=== PATIENT | female | born 1960 | race Two or more races ===

== ENCOUNTER 2019-12-24 09:30 | Outpatient (AMBR) | payer MEDICAID, SELFPAY ==
--- NOTE | 2019-12-12 09:01 | PT.OIERPT ---
PT OP Initial Eval Patient Information Visit Reasons: left knee pain Medical Diagnosis: Z47.1 Z96.652 Treatment Dx #1: L knee pain Start of Care: 12/12/19 Date of Onset: 10/30/19 Initial Assessment Subjective Pt is 59 yr old indonesian speaking female s/p L knee medial unicompartment replacement about 6 weeks ago. She presents ambulating with cane about 2 city blocks. Pain level in the L knee is 7/10 and she had HH therapy for two weeks after sx. PMH: HTN, anxiety Pt goal: to walk her normal distances without pain Objective L knee AROM: Extension: -10 deg Flexion 110 deg Strength MMT Quads: 4-/5 Hamstrings: 4-/5 SLR: 40 deg with slight extensor lag Incision: clean, no redness, drainage Squat to 25% of normal with less L LE WB. Assessment Pt presentation consistent with post op L medial unicompartment knee replacement with decreased knee flexion ROM, strength and functional mobility. Pt ambulates with decreased WB and stance time on L LE with flexed knee. Pt has decreased ability to ascend/descend stairs and has quad weakness. Pt can SLR with extensor lag. Pt has good rehab potential and requires skilled therapy in order to increase R knee ROM, strength and gait. Short Term and Non Destructive Testing Technician Goals 1. Ind with HEP 2. Improved knee flexion ROM to 120 deg 3. Improved quad and hamstring strength to 4+/5 4. Pt will ambulate with symmetrical gait pattern community distances without cane Treatment Plan 1. Manual therapy 2. Therex 3. Modalities as indicated, moist heat, ice, estim Frequency and Duration 2x a week for 8 weeks Certification Dates: 12/12/19 to 03/12/20 Office Procedures PT Procedures PT Date of Service: 12/12/19 OP PT Eval Mod Complex 30 minutes: Yes
--- NOTE | 2019-12-18 09:53 | PT.ODAYNRPT ---
PT Outpatient Daily Note Date of Service: December 18, 2019 OP Daily Note Visit Reasons: left knee pain Outpatient Physical Therapy Treatment Date: 12/18/19 Subjective: Yesterday the knee was very painful and she has difficulty straightening it. Objective: See F/S for therex MT: PPM into knee flexion, STM medial knee and incision scar x10' Assessment: Improved knee flexion to 120 deg today after manual therapy. Lacking knee extension by about 5 deg Plan: Improve knee extension Length of Time (minutes) of Treatment: 30 Minutes Office Procedures PT Procedures PT Date of Service: 12/12/19 OP PT Eval Mod Complex 30 minutes: Yes PT Procedures PT Date of Service: 12/18/19 Therapeutic Exercise 15 minutes: Yes Manual Anesthesiology Technologist 15 minutes: Yes
--- NOTE | 2019-12-20 18:55 | PT.ODAYNRPT ---
PT Outpatient Daily Note Date of Service: December 20, 2019 OP Daily Note Visit Reasons: left knee pain Outpatient Physical Therapy Treatment Date: 12/20/19 Subjective: Doing better with straightening the knee but it still hurts Objective: See F/S for therex MT: PPM into knee flexion, STM medial knee and incision scar x10' Assessment: Improved knee flexion to 120 deg today after manual therapy. Improved knee extension ROM to full today in supine Plan: Improve knee extension Length of Time (minutes) of Treatment: 30 Minutes Office Procedures PT Procedures PT Date of Service: 12/12/19 OP PT Eval Mod Complex 30 minutes: Yes PT Procedures PT Date of Service: 12/20/19 Therapeutic Exercise 15 minutes: Yes Manual Injury Prevention Coordinator 15 minutes: Yes PT Procedures PT Date of Service: 12/18/19 Therapeutic Exercise 15 minutes: Yes Manual Injury Prevention Coordinator 15 minutes: Yes
--- NOTE | 2019-12-24 10:58 | PT.ODAYNRPT ---
PT Outpatient Daily Note Date of Service: December 24, 2019 OP Daily Note Visit Reasons: left knee pain Outpatient Physical Therapy Treatment Date: 12/24/19 Subjective: pt states she is still having pain of the H.S and difficulty with knee extension. Objective: see flow sheet. Assessment: pt ambulated with antalgic gait pattern and slight knee flexion as she has difficulty with knee extension. added stepper stretch to decrease the tightness of the HS muscles. noted pt still lacks the knee extension during her stretch. STM using thera bar to her HS in prone position in which she tolerated well but noted muscle tension of the HS. Plan: continue POC per PT. Length of Time (minutes) of Treatment: 30 Minutes Office Procedures PT Procedures PT Date of Service: 12/12/19 OP PT Eval Mod Complex 30 minutes: Yes PT Procedures PT Date of Service: 12/20/19 Therapeutic Exercise 15 minutes: Yes Manual Superintendent Of Schools 15 minutes: Yes PT Procedures PT Date of Service: 12/18/19 Therapeutic Exercise 15 minutes: Yes Manual Superintendent Of Schools 15 minutes: Yes PT Procedures PT Date of Service: 12/24/19 Therapeutic Exercise 30 minutes: Yes
== END 2019-12-25 23:59 | disposition home or self-care (01) ==
PROVIDERS: PCP Physician Assistant; Referring Provider Physician Assistant; Visit Provider Orthopaedic Surgery
DX: M25.562 Pain in left knee (principal); I10 Essential (primary) hypertension
CPT/HCPCS: 97110; 97140; 97162

== ENCOUNTER → 2024-07-31 | Outpatient (CLI) | payer OTHER, MEDICAID, SELFPAY ==
[2024-07-31 12:45] LABS: Basophils % (Auto) 0 % (0-2.5); Eosinophils # (Auto) 0.1 Thou/mm3 (0.0-0.5); Eosinophils % (Auto) 1 % (0-10); Hematocrit 45.3 % (36.0-46.0); Hemoglobin 15.5 g/dL (12.0-16.0); Immature Granulocytes % (Auto) 0 % (0-0); Immature Granulocytes Auto 0.01 Thou/mm3 (0.00-0.00); Lymphocytes % (Auto) 18 % (10-50); Mean Corpuscular HGB Conc 34.2 g/dl (31.0-37.0); Mean Corpuscular Hemoglobin 29.8 pg (25.0-35.0); Mean Corpuscular Volume 87 fL (80-100); Monocytes # (Auto) 0.3 Thou/mm3 (0.0-0.8); Monocytes % (Auto) 5 % (0-12); Neutrophils # (Auto) 4.3 Thou/mm3 (1.8-7.7); Neutrophils % (Auto) 76 % (37-80); Nucleated Red Blood Cell % 0 /100 WBC (0); Platelet Count 178 Thou/mm3 (140-440); RDW Standard Deviation 45.6 fL (36.4-46.3); Red Blood Count 5.21 Miln/mm3 (4.00-5.20); White Blood Count 5.7 Thou/mm3 (3.6-11.0)
[2024-07-31 12:58] LABS: Glucose Estimated Average 108 mg/dL (80-131); Hemoglobin A1C 5.4 % Hgb (4.8-6.0)
[2024-07-31 13:05] LABS: Alanine Aminotransferase 38 U/L (10-49); Albumin, Serum 4.9 gm/dL (3.4-4.8); Albumin/Globulin Ratio 1.5 (1.2-2.2); Alkaline Phosphatase 90 U/L (46-116); Anion Gap 6 (7-16); Aspartate Amino Transferase 40 U/L (0-34); BUN/Creatinine Ratio 21 Ratio (12-20); Bilirubin,Total 0.8 mg/dL (0.3-1.2); Blood Urea Nitrogen 15 mg/dL (9-23); Carbon Dioxide 26.8 mMol/L (20.0-31.0); Chloride 104 mMol/L (98-107); Creatinine (Component) 0.7 mg/dL (0.6-1.3); Globulin 3.3 gm/dL (2.3-3.5); Glucose 182 mg/dL (74-106); Osmolality,Calculated 279 (275-295); Potassium 4.1 mMol/L (3.4-5.1); Sodium 137 mMol/L (136-145); Total Protein 8.2 gm/dL (5.7-8.2); eGFR > 60 See Note
[2024-07-31 13:07] LABS: T4 (Thyroxine) 6.8 mcg/dL (4.5-10.9)
[2024-07-31 13:43] LABS: Creatinine MALB Rnd Ur 34 mg/dL (30-125); Microalbumin Creat Ratio 18 mg/gCrea (<30); Microalbumin, Random Urine 6 mg/L (0-300)
== END | disposition home or self-care (01) ==
PROVIDERS: PCP Family Medicine; Referring Provider Family Medicine; Visit Provider Family Medicine
DX: E11.65 Type 2 diabetes mellitus with hyperglycemia (principal); I10 Essential (primary) hypertension
CPT/HCPCS: 36415; 80053; 82043; 82570; 83036; 84436; 84443; 85025

== ENCOUNTER 2024-08-06 10:02 | Emergency (ER) | payer OTHER, SELFPAY ==
[2024-08-06 10:03] VITALS: BMI 29.2
[2024-08-06 10:11] VITALS: BP 148/78; PULSE 88; RESP 19; TEMP 36.8; O2SAT 98
--- NOTE | 2024-08-06 10:21 | EDNOTE_ITS ---
ED Headache RME/HPI General Chief Complaint: Headache Stated Complaint: headache, ear pain, dizzy, stuffy nose Time Seen by Provider: 08/06/24 10:08 Arrival date/time: 08/06/24 10:02 63-year-old female presents emergency department complaints of runny nose, congestion, sinus pressure and pain patient reports no dizziness or weakness Limitations: no limitations Related Data Home Medications ?Medication ?Instructions ?Recorded ?Confirmed montelukast 10 mg tablet 10 mg PO DAILY PRN Allergy Symptoms 09/16/23 04/05/24 pregabalin 150 mg capsule 150 mg PO DAILY 09/16/23 04/05/24 amitriptyline 25 mg tablet 25 mg PO QDAY 04/05/24 04/05/24 buspirone 15 mg tablet 15 mg PO BID 04/05/24 04/05/24 celecoxib 100 mg capsule 100 mg PO DAILY 04/05/24 04/05/24 cyclobenzaprine 10 mg tablet 10 mg PO HS PRN Muscle Spasm 04/05/24 04/05/24 empagliflozin 10 mg tablet 10 mg PO QAM 04/05/24 04/05/24 (Jardiance) losartan 100 mg tablet 100 mg PO QDAY 04/05/24 04/06/24 omeprazole 40 mg capsule,delayed 40 mg PO QDAY 04/05/24 04/05/24 release pioglitazone 15 mg tablet 15 mg PO QAM 04/05/24 04/05/24 tramadol 50 mg tablet 50 mg PO TID PRN Pain 04/05/24 04/05/24 Previous Rx's ?Medication ?Instructions ?Recorded amoxicillin 875 mg-potassium 1 tab PO BID 7 days #14 tabs 08/06/24 clavulanate 125 mg tablet ibuprofen 800 mg tablet 800 mg PO TID PRN pain #30 tabs 08/06/24 Allergies Allergy/AdvReac Type Severity Reaction Status Date / Time No Known Allergies Allergy Verified 08/06/24 10:06 Review of Systems Review of Systems Systems Reviewed: All systems reviewed, normal except as documented Constitutional Constitutional: Reports system reviewed and no additional complaints, except as documented, Denies fever(s) and Denies headache(s) Eyes Eyes: Reports system reviewed and no additional complaints, except as documented and Denies blurry vision ENT Ears, Nose, Mouth, and Throat: Reports system reviewed and no additional complaints, except as documented, Denies headache(s), Reports nasal congestion, Reports nasal discharge, Reports sinus pain and Reports sinus pressure Cardiovascular Cardiovascular: Reports system reviewed and no additional complaints, except as documented, Denies chest pain and Denies dyspnea Respiratory Respiratory: Reports system reviewed and no additional complaints, except as documented, Denies chest congestion, Denies cough and Denies dyspnea Gastrointestinal Gastrointestinal: Reports system reviewed and no additional complaints, except as documented and Denies abdominal pain Integumentary/Breasts Skin/Breast: Reports system reviewed and no additional complaints, except as documented and Denies rash Neurologic Neurologic: Reports system reviewed and no additional complaints, except as documented, Reports as per HPI and Denies headache(s) Past Medical History Past Medical History NEUROLOGIC: Negative Neurological Disorders CARDIAC: Negative Cardiac Disorders ED Exam General Limitations: Present no limitations General appearance: Present alert and in no apparent distress Head Head exam: Present atraumatic, normocephalic and normal inspection Eye Eye exam: Present normal appearance, PERRL and EOMI; Absent conjunctival injection ENT ENT exam: Present normal exam, normal oropharynx and mucous membranes moist Neck Neck exam: Present normal inspection, full ROM and trachea midline Chest Chest inspection: Present normal inspection and symmetric chest wall rise Respiratory Respiratory exam: Present normal lung sounds bilaterally; Absent respiratory distress Cardiovascular Cardiovascular exam: Present regular rate, normal rhythm and normal heart sounds Abdominal Exam Abdominal exam: Present soft and normal bowel sounds; Absent distention or tenderness Extremities Exam Extremities exam: Present normal inspection and full ROM Back Exam Back exam: Present normal inspection and full ROM Neurological Exam Neurological exam: Present alert, oriented X3, CN II-XII intact, normal gait and reflexes normal; Absent motor sensory deficit Psychiatric Psychiatric exam: Present normal affect and normal mood Skin Skin exam: Present warm, dry, intact and normal color; Absent rash Course Quality Measures none Vital Signs Vital signs: Vital Signs Temperature 98.2 F 08/06/24 10:11 Pulse Rate 88 08/06/24 10:11 Respiratory Rate 19 08/06/24 10:11 Blood Pressure 148/78 H 08/06/24 10:11 Pulse Oximetry (%) 98 08/06/24 10:11 Oxygen Delivery Method Room Air 08/06/24 10:11 O2 saturation 98% on room air within normal limits Headache MDM Narrative MDM Narrative:: 63-year-old female presents emergency department complaints of runny nose, congestion, sinus pressure and pain patient reports no dizziness or weakness On exam patient well-appearing patient does not appear ill or toxic patient does not appear in any acute distress symptoms highly consistent with sinusitis Patient be given a course of antibiotics patient instructed to return if symptoms persist or worsen Patient discharged home in no distress to follow-up with primary care doctor in the next 24 to 48 hours and for any worsening symptoms to return to the ER immediately Patient data External records reviewed:: [facility] previous records Clinical information provided by:: patient Social determinants that could affect healthcare access:: none Patient has the following chronic illnesses:: See history How is presenting disease/condition affected by chronic disease/condition?: uneffected by Evaluation data The following diagnostics were reviewed and interpreted by me:: other (specify) (N/A) Lab and/or radiology exams considered but not ordered:: Consider not ordered Interpretation Summary: N/A Medications / Prescriptions Medications or Prescriptions considered but not ordered:: Given Medication administrations:: Given Consultations Consultation(s) initiated? (list below): No Diagnosis Differential diagnosis headache: migraine, tension headache, subarachnoid hemorrhage, headache and sinusitis Most likely diagnosis given after review of the tests above:: Sinusitis Admission Indicated Admission indicated?: not indicated Admission Request Was there a request for admission?: No Disposition Plan Disposition Plan: Discharge Discharge Attestation Discharge Attestation: The patient and all family members were given an opportunity to ask questions and understood the discharge instructions. Discharge instructions specifically effects, indications for sooner follow up or return to the emergency department, and the expected course of current diagnosis. Patient condition: Stable Discharge Plan Plan Patient Disposition: HOME (Self Care) Disposition Comment: stable Prescriptions/Referrals Prescriptions/Med Rec: New ibuprofen 800 mg tablet 800 mg PO TID PRN (Reason: pain) Qty: 30 0RF amoxicillin-pot clavulanate 875-125 mg tablet 1 tab PO BID 7 Days Qty: 14 0RF No Action montelukast 10 mg tablet 10 mg PO DAILY PRN (Reason: Allergy Symptoms) Patient Comments: RYAN RINCON TODOS LOS D pregabalin 150 mg capsule 150 mg PO DAILY Patient Comments: RYAN Bennett PSULA DOS VECES AL D A cyclobenzaprine 10 mg tablet 10 mg PO HS PRN (Reason: Muscle Spasm) pioglitazone 15 mg tablet 15 mg PO QAM Patient Comments: RYAN RIVASA POR VIA ORAL CADA MANANA omeprazole 40 mg Capsule,Delayed Release(Dr/Ec) 40 mg PO QDAY tramadol 50 mg Tablet 50 mg PO TID PRN (Reason: Pain) amitriptyline 25 mg Tablet 25 mg PO QDAY celecoxib 100 mg Capsule 100 mg PO DAILY losartan 100 mg Tablet 100 mg PO QDAY buspirone 15 mg Tablet 15 mg PO BID Jardiance 10 mg Tablet 10 mg PO QAM Problem List Clinical Impression: Sinusitis Patient/Caregiver Discharge Instructions Education Materials: ED Sinusitis (No Antibiotics) Additional Instructions: Please follow up with your primary care doctor in the next 24-48hrs for any worsening symptoms return here immediately Print Language: Arabic Stand Alone Forms: Mary Award Info., Patient Portal Info Letter PA/CAR SALESPERSON Supervising Physician PA/ZA Supervising Physician: Dr. Goyal
== END 2024-08-06 11:47 | disposition home or self-care (01) ==
LOC: SERX 10:32
PROVIDERS: Emergency Provider Emergency Medicine; PCP Family Medicine
DX: J32.9 Chronic sinusitis, unspecified (principal)
CPT/HCPCS: 99281

== ENCOUNTER → 2024-08-16 | Outpatient (CLI) | payer OTHER, MEDICAID, SELFPAY ==
--- NOTE | 2024-08-16 12:30 | XR_ITS ---
Examination: Breast ultrasound, unilateral, right complete Date and time of exam: August 16, 2024 1309 hours INDICATIONS: Patient states palpable lump right breast note is beginning one month ago Technique: Real-time salgado scale ultrasonographic imaging performed right breast including all 4 quadrants as well as nipple retroareolar and axillary region. Findings: 8:00 oval mass indistinct margins 2.3 x 2.8 x 1.5 cm 9:00 oval mass circumscribed 7 x 3 x 7 mm IMPRESSION: BI-RADS Category 4: Suspicious for malignancy Suspicious mass 8:00 position right breast 2.3 x 2.8 x 1.5 cm Ultrasound guided biopsy of this mass is needed to exclude breast carcinoma
== END | disposition home or self-care (01) ==
PROVIDERS: PCP Family Medicine; Referring Provider Family Medicine; Visit Provider Family Medicine
DX: N63.13 Unspecified lump in the right breast, lower outer quadrant (principal)
CPT/HCPCS: 76641

== ENCOUNTER 2024-09-14 12:50 | Day surgery (SDC) | payer OTHER, MEDICAID, SELFPAY ==
[2024-09-13 13:07] VITALS: BMI 29.5
[2024-09-14] VITALS (7 sets, daily range): BP systolic 128–172; BP diastolic 71–94; PULSE 81–99; RESP 15–19; TEMP 36.1–37.3; O2SAT 93–95; BMI 29.0
[2024-09-14] MEDS: BENZOCAINE 20% (Hurricaine) SPRAY 1 DOSE TOP (14:47)
[2024-09-14] MEDS: DiphenhydrAMINE INJ 50 MG/ML VIAL 25 MG IV (14:48)
[2024-09-14] MEDS: MIDAZOLAM INJ 1 MG/ML VIAL 2 ML (ASD USE ONLY) 2 MG IV (14:51)
[2024-09-14] MEDS: fentaNYL CIT INJ 50 mCg/ML AMP 2ML (ASD USE ONLY) IV (14:51)
--- NOTE | 2024-09-14 15:57 | SUR.PHASEII ---
1543 Pt assessment unchanged. Via logging equipment operator-pt denies pain or N/V. Amb with steady gait. Able to dress self. Pt and given dc instructions, via logging equipment operator. Both state understanding. Pt meets dc criteria-to home.
== END 2024-09-14 15:43 | disposition home or self-care (01) ==
PROVIDERS: PCP Nurse Practitioner Family; Referring Provider Specialist; Visit Provider Specialist
PROC: (CPT 43239; principal; 2024-09-14 09:45)
DX: K74.60 Unspecified cirrhosis of liver (principal); K29.70 Gastritis, unspecified, without bleeding; I85.10 Secondary esophageal varices without bleeding; K29.50 Unspecified chronic gastritis without bleeding
CPT/HCPCS: 43239; A4649; J1200; J2250; J3010; A9270

== ENCOUNTER → 2024-09-20 | Outpatient (CLI) | payer OTHER, MEDICAID, SELFPAY ==
--- NOTE | 2024-09-20 12:32 | EKG_ITS ---
[facility] Test Date: 2024-09-20 Pat Name: RICARDA LEES Department: Room: - Gender: Female Director Of Sustainable Design: SHIRLEY : 1960 Requested By: Colton Larson Order Number: [id number] Reading MD: Colton Larson Measurements Intervals Shepherd Rate: 67 P: 20 OK: 136 QRS: 28 QRSD: 78 T: 23 QT: 399 QTc: 424 Interpretive Statements SINUS RHYTHM Compared to ECG 06/28/2024 22:05:08 Incomplete right bundle-branch block no longer present /store/S0/[id number]/ecg/[id number].pdf
== END | disposition home or self-care (01) ==
LOC: SCAT 11:55 → SEKG 12:04
PROVIDERS: PCP Nurse Practitioner Family; Referring Provider Surgery; Visit Provider Surgery
DX: C50.411 Malignant neoplasm of upper-outer quadrant of right female breast (principal)
CPT/HCPCS: 93005

== ENCOUNTER → 2024-09-20 | Outpatient (CLI) | payer OTHER, MEDICAID, SELFPAY ==
[2024-09-20 12:09] LABS: Basophils % (Auto) 0 % (0-2.5); Eosinophils # (Auto) 0.1 Thou/mm3 (0.0-0.5); Eosinophils % (Auto) 3 % (0-10); Hematocrit 40.9 % (36.0-46.0); Immature Granulocytes % (Auto) 0 % (0-0); Immature Granulocytes Auto 0.01 Thou/mm3 (0.00-0.00); Lymphocytes # (Auto) 1.3 Thou/mm3 (1.0-4.8); Lymphocytes % (Auto) 40 % (10-50); Mean Corpuscular HGB Conc 34.2 g/dl (31.0-37.0); Mean Corpuscular Hemoglobin 30.5 pg (25.0-35.0); Mean Corpuscular Volume 89 fL (80-100); Monocytes # (Auto) 0.2 Thou/mm3 (0.0-0.8); Monocytes % (Auto) 7 % (0-12); Neutrophils # (Auto) 1.7 Thou/mm3 (1.8-7.7); Neutrophils % (Auto) 50 % (37-80); Nucleated Red Blood Cell % 0 /100 WBC (0); Platelet Count 161 Thou/mm3 (140-440); RDW Standard Deviation 50.7 fL (36.4-46.3); Red Blood Count 4.59 Miln/mm3 (4.00-5.20); White Blood Count 3.3 Thou/mm3 (3.6-11.0)
[2024-09-20 12:23] LABS: Alanine Aminotransferase 47 U/L (10-49); Albumin, Serum 4.8 gm/dL (3.4-4.8); Albumin/Globulin Ratio 1.7 (1.2-2.2); Alkaline Phosphatase 67 U/L (46-116); Anion Gap 8 (7-16); Aspartate Amino Transferase 24 U/L (0-34); BUN/Creatinine Ratio 23 Ratio (12-20); Bilirubin,Total 0.8 mg/dL (0.3-1.2); Blood Urea Nitrogen 14 mg/dL (9-23); C-Reactive Protein < 0.4 mg/dL (0.0-0.9); Calcium 9.5 mg/dL (8.3-10.6); Calcium (Corrected) 9.5 mg/dL (8.5-10.1); Carbon Dioxide 26.5 mMol/L (20.0-31.0); Chloride 108 mMol/L (98-107); Creatinine (Component) 0.6 mg/dL (0.6-1.3); Globulin 2.9 gm/dL (2.3-3.5); Glucose 96 mg/dL (74-106); Osmolality,Calculated 283 (275-295); Potassium 3.8 mMol/L (3.4-5.1); Sodium 142 mMol/L (136-145); Total Protein 7.7 gm/dL (5.7-8.2); eGFR > 60 See Note
[2024-09-20 12:28] LABS: Sed Rate (ESR) 33 mm/hr (0-30)
[2024-09-28 06:37] LABS: Complement Component C3* 145 mg/dL (83-193); Complement Component C4c* 17 mg/dL (15-57); DNA (ds) Antibody* 17 IU/mL
== END | disposition home or self-care (01) ==
LOC: COPL 11:04
PROVIDERS: PCP Nurse Practitioner Family; Referring Provider Internal Medicine; Visit Provider Internal Medicine
DX: I12.9 Hypertensive chronic kidney disease with stage 1 through stage 4 chronic kidney disease, or unspecified chronic kidney disease (principal); E11.22 Type 2 diabetes mellitus with diabetic chronic kidney disease; N18.9 Chronic kidney disease, unspecified; E11.65 Type 2 diabetes mellitus with hyperglycemia; F11.90 Opioid use, unspecified, uncomplicated; F34.1 Dysthymic disorder; G25.81 Restless legs syndrome; K74.69 Other cirrhosis of liver; M17.0 Bilateral primary osteoarthritis of knee; M25.511 Pain in right shoulder; M25.521 Pain in right elbow; M47.816 Spondylosis without myelopathy or radiculopathy, lumbar region; M79.7 Fibromyalgia; R76.0 Raised antibody titer
CPT/HCPCS: 36415; 80053; 85025; 85652; 86140; 86160; 86225

== ENCOUNTER 2024-11-20 09:41 | Outpatient (RCR) | payer MEDICARE, MEDICAID, SELFPAY ==
--- NOTE | 2024-11-20 12:10 | CTCCONSULT_ITS ---
[facility] [address] [place], [place] [address] Consultation Note Date: 11/20/2024 MR#: [id number] Name: RICARDA LEES : 1960 Dx: C50.511 Malignant neoplasm of lower-outer quadrant of right female breast Attending physician. Kendra Dela Cruz MD Referring physician. Colton Larson MD Reason for consultation. Invasive lobular carcinoma status post right partial mastectomy sentinel removal referred to the cancer treatment center. History of Present Illness: Patient is a 64-year-old lady on recent imaging including ultrasound revealed a suspicious nodular change in the lower outer quadrant of the right breast. Needle core biopsy 09/06/2024 revealed invasive carcinoma lobular 1.5 cm ER/IA positive HER2/shantal negative Ki-67 20% patient then underwent right partial mastectomy and removal of right sentinel lymph node 10/15/2024 resulting in 2.5 cm invasive lobular carcinoma final margins negative with 1 sentinel lymph node revealing isolated tumor involvement. pT2pN0(1+) ER/IA positive HER2 negative Ki67 20%. Oncotype DX reportedly has been ordered results not immediately available. Patient now referred to the cancer treatment center. Past Medical History: Hypertension anxiety diabetes mellitus acid reflux history of breast reduction surgery Meds. Trazodone tramadol omeprazole pregabalin amlodipine alprazolam sertraline pioglitazone allergies. None to meds Family history.: Lung cancer prostate cancer in family no family members with breast cancer Social History: Icelandic-speaking denies drinking smoking Review of Systems: He is nervous about diagnosis and has recently had a headache. Physical Exam: General: Well-appearing lady no acute distress HEENT: Atraumatic normocephalic extraocular is intact no oral lesion no cervical or supraclavicular adenopathy. CV: Well-healed scar right lower breast axilla area no suspicious masses felt in either breasts ABD: Soft no organomegaly tenderness EXT: No cyanosis clubbing or edema Assessment:1. pT2pN0(1+) invasive lobular right breast carcinoma ER/IA positive HER2/shantal negative status post partial mastectomy sentinel node removal. negative margins obtained.; Dr. Colton Larson 10/15/2024. 2. Oncotype DX reportedly has been ordered 3. Dr. Rivero, medical oncologist, scheduled to see patient 4. Patient told of receiving radiation therapy at appropriate time; 3-week course of photon therapy using 3D technique with E boost to the tumor site for 1 additional week.. Side effects explained. 5. Thank you very much allowing me to evaluate and manage this patient. Cc Colton Dela Cruz MD Electronically signed by: Jay Bonilla MD, DABR 11/20/2024 12:07 PM
== END 2024-11-23 23:59 | disposition home or self-care (01) ==
LOC: SCTC 09:41
PROVIDERS: PCP Family Medicine; Referring Provider Surgery; Visit Provider Radiology Therapeutic Radiology
DX: C50.511 Malignant neoplasm of lower-outer quadrant of right female breast (principal); Z17.0 Estrogen receptor positive status [ER+]; Z17.21 Progesterone receptor positive status; Z17.32 Human epidermal growth factor receptor 2 negative status; Z90.11 Acquired absence of right breast and nipple
CPT/HCPCS: 99213; G0463

== ENCOUNTER 2024-12-11 23:55 | Emergency (ER) | payer OTHER, MEDICAID, SELFPAY ==
[2024-12-11 23:56] VITALS: BMI 28.3
[2024-12-12 00:12] VITALS: BP 168/83; PULSE 88; RESP 16; TEMP 36.7; O2SAT 98
--- NOTE | 2024-12-12 00:42 | PD.EDHA ---
ED Headache RME/HPI General Chief Complaint: Headache Stated Complaint: HEADACHE Time Seen by Provider: 12/12/24 00:14 Arrival date/time: 12/11/24 23:55 64F with history of DM, HTN, migraines and anxiety presents to ED with 1 day of RAMON. Patient denies fall/trauma, LOC, AMS, seizures, N/V, visison changes, slurred speech, weakness, and dizziness. Patient states this feels like her typical migraines. Patient took some ibuprofen w/ only minimal relief. Limitations: no limitations Related Data Home Medications ?Medication ?Instructions ?Recorded ?Confirmed montelukast 10 mg tablet 10 mg PO DAILY PRN Allergy Symptoms 09/16/23 09/14/24 omeprazole 40 mg capsule,delayed 40 mg PO QDAY 04/05/24 09/14/24 release pioglitazone 15 mg tablet 15 mg PO QAM 04/05/24 09/14/24 alprazolam 0.25 mg tablet 0.25 mg PO QDAY 09/14/24 09/14/24 Held on 09/14/24. Instructions: Resume on 09/15/24. amlodipine 5 mg tablet 5 mg PO QDAY 09/14/24 09/14/24 semaglutide 0.25 mg or 0.5 mg (2 0.25 mg subcut QWEEK 09/14/24 09/14/24 mg/3 mL) subcutaneous pen injector (Ozempic) Allergies Allergy/AdvReac Type Severity Reaction Status Date / Time No Known Allergies Allergy Verified 09/14/24 13:37 Review of Systems Review of Systems Systems Reviewed: All systems reviewed, normal except as documented Constitutional Constitutional: Reports system reviewed and no additional complaints, except as documented, Reports as per HPI, Denies fever(s) and Reports headache(s) ENT Ears, Nose, Mouth, and Throat: Denies disequilibrium and Reports headache(s) Cardiovascular Cardiovascular: Reports system reviewed and no additional complaints, except as documented, Denies chest pain and Denies dyspnea Respiratory Respiratory: Reports system reviewed and no additional complaints, except as documented, Denies cough and Denies dyspnea Gastrointestinal Gastrointestinal: Reports system reviewed and no additional complaints, except as documented, Denies abdominal pain, Denies nausea and Denies vomiting Neurologic Neurologic: Reports system reviewed and no additional complaints, except as documented, Denies confusion, Denies disequilibrium and Reports headache(s) Psychiatric Psychiatric: Denies confusion Past Medical History Past Medical History NEUROLOGIC: Negative Neurological Disorders or Seizures CARDIAC: Positive Cardiac Disorders and Hypertension; Negative Congestive Heart Failure RESPIRATORY: Negative Chronic Obstructive Pulmonary Disease (COPD), Asthma or Sleep Apnea GASTROINTESTINAL: Positive Gastrointestinal Disorders, Cirrhosis, Diverticulitis and Diverticulosis; Negative Hepatitis or Gastroesophageal Reflux Disease GENITOURINARY: Positive Genitourinary Disorders and Renal Disease REPRODUCTIVE: Positive Previous Pregnancies MUSCULOSKELETAL: Positive Musculoskeletal Disorders and Arthritis ENDOCRINE: Positive Endocrine Disorders and Diabetes Mellitus Type 2; Negative Diabetes Mellitus Type 1 HEMATOLOGIC: Negative Blood Disorders or Sickle Cell Disease PSYCHO/SOCIAL: Positive Depression and Anxiety OTHER HISTORY: Positive Chicken Pox and Measles; Negative Hospitalization, Autoimmune Disease, Down Syndrome, Developmental Delay, Shingles, Falls, Blood Transfusions, Blood Transfusion Reaction, Anesthesia Reactions, Chemotherapy, Radiation Therapy, Mumps or Cancer Family History FAMILY HISTORY: Positive Family Cancer; Negative Family Psychiatric Problems, Family Respiratory Disorders, Family Cardiac Disorders, Family Gastrointestinal Problems, Family Surgery or Family Anesthesia Reaction Surgical History SURGICAL: Positive Abdominal Surgery, Arthroscopy and Tubal Ligation Social History SMOKING STATUS: Never smoker ED Exam General Limitations: Present no limitations General appearance: Present alert, in no apparent distress and anxious Head Head exam: Present atraumatic Eye Eye exam: Present normal appearance, PERRL and EOMI ENT ENT exam: Present normal exam, normal oropharynx and mucous membranes moist Neck Neck exam: Present normal inspection, full ROM and trachea midline Chest Chest inspection: Present normal inspection and symmetric chest wall rise Respiratory Respiratory exam: Present normal lung sounds bilaterally Cardiovascular Cardiovascular exam: Present regular rate, normal rhythm and normal heart sounds Abdominal Exam Abdominal exam: Present soft and normal bowel sounds Extremities Exam Extremities exam: Present normal inspection and full ROM Back Exam Back exam: Present normal inspection and full ROM Neurological Exam Neurological exam: Present alert, oriented X3 and CN II-XII intact Psychiatric Psychiatric exam: Present normal affect and normal mood Skin Skin exam: Present warm, dry, intact and normal color Course Quality Measures none Orders Category Date Time Status Metoclopramide [Reglan] Med 12/12/24 00:14 Discontinued 10 mg PO X1 ONE SUMAtriptan INJ [Imitrex Inj] Med 12/12/24 00:14 Discontinued 6 mg SC X1 ONE Vital Signs Vital signs: Vital Signs Temperature 98.1 F 12/12/24 00:12 Pulse Rate 88 12/12/24 00:12 Respiratory Rate 16 12/12/24 00:12 Blood Pressure 168/83 H 12/12/24 00:12 Pulse Oximetry (%) 98 12/12/24 00:12 Oxygen Delivery Method Room Air 12/12/24 00:12 O2 at 98% on RA and WNLs Headache MDM Narrative MDM Narrative:: 64F with history of DM, HTN, migraines and anxiety presents to ED with 1 day of RAMON. Patient denies fall/trauma, LOC, AMS, seizures, N/V, visison changes, slurred speech, weakness, and dizziness. Patient states this feels like her typical migraines. Patient took some ibuprofen w/ only minimal relief. Physical exam reveals normal pupil response and EOM. ENT clear. CN II-XII grossly intact. Patient is afebrile, alert, but anxious. Migraine meds improved symptoms. Patient data External records reviewed:: [facility] previous records Clinical information provided by:: patient Social determinants that could affect healthcare access:: none Patient has the following chronic illnesses:: DM, HTN, migraines and anxiety How is presenting disease/condition affected by chronic disease/condition?: caused by Evaluation data The following diagnostics were reviewed and interpreted by me:: other (specify) (none) Lab and/or radiology exams considered but not ordered:: not ordered Interpretation Summary: n/a Medications / Prescriptions Medications or Prescriptions considered but not ordered:: ordered Medication administrations:: Medication Administration History Discontinued Medications Metoclopramide HCl (Metoclopramide 5 Mg Tablet) 10 mg PO X1 ONE Stop: 12/12/24 00:15 Last Admin: 12/12/24 00:47 Dose: 10 mg Documented By: OA Sumatriptan Succinate (Sumatriptan Inj 6 Mg/0.5 Ml Vial) 6 mg SC X1 ONE Stop: 12/12/24 00:15 Last Admin: 12/12/24 00:47 Dose: 6 mg Documented By: OA above Consultations Consultation(s) initiated? (list below): No Diagnosis Differential diagnosis headache: migraine, tension headache, subarachnoid hemorrhage, headache, meningitis, sinusitis, postconcussion syndrome and other (CVA/TIA) Most likely diagnosis given after review of the tests above:: migraine Admission Indicated Admission indicated?: not indicated Admission Request Was there a request for admission?: No Disposition Plan Disposition Plan: Discharge Discharge Attestation Discharge Attestation: The patient and all family members were given an opportunity to ask questions and understood the discharge instructions. Discharge instructions specifically effects, indications for sooner follow up or return to the emergency department, and the expected course of current diagnosis. Patient condition: Stable Discharge Plan Plan Patient Disposition: HOME (Self Care) Disposition Comment: Stable Prescriptions/Referrals Prescriptions/Med Rec: No Action montelukast 10 mg tablet 10 mg PO DAILY PRN (Reason: Allergy Symptoms) Patient Comments: TOME MOR TABLETA TODOS LOS D pioglitazone 15 mg tablet 15 mg PO QAM Patient Comments: TOME MOR TABLETA POR VIA ORAL CADA MANANA omeprazole 40 mg Capsule,Delayed Release(Dr/Ec) 40 mg PO QDAY amlodipine 5 mg tablet 5 mg PO QDAY alprazolam 0.25 mg tablet 0.25 mg PO QDAY Ozempic 0.25 mg or 0.5 mg (2 mg/3 mL) pen injector 0.25 mg SUBCUT QWEEK Patient Comments: states will not be taking anymore Referrals: Pamela Domínguez TELEPHONE SWITCHBOARD OPERATOR [Primary Care Provider] - In 1 week Problem List Clinical Impression: Migraine Patient/Caregiver Discharge Instructions Education Materials: ED Headache, Migraine, Classic Additional Instructions: Please follow-up with PCP within 24-48 hours and return immediately if symptoms worsen. Print Language: Bruneian Stand Alone Forms: Patient Portal Info Letter SAUMYA/ZA Supervising Physician SAUMYA/ZA Supervising Physician: Dr. Harris
[2024-12-12] MEDS: METOCLOPRAMIDE 5 MG TABLET 10 MG PO (00:47)
[2024-12-12] MEDS: SUMAtriptan INJ 6 MG/0.5 ML VIAL SC (00:47)
== END 2024-12-12 01:34 | disposition home or self-care (01) ==
PROVIDERS: Emergency Provider Emergency Medicine; PCP Nurse Practitioner Family
DX: G43.109 Migraine with aura, not intractable, without status migrainosus (principal)
CPT/HCPCS: 96372; 99283; J3030; A9270

== ENCOUNTER → 2024-12-21 | Outpatient (CLI) | payer OTHER, MEDICAID, SELFPAY ==
--- NOTE | 2024-12-21 13:09 | XR_ITS ---
Examination: Knee, right , 3 views Technique: Knee AP, lateral, oblique 3 views Date and time of exam: December 21, 2024 1356 hours INDICATIONS: Right knee pain beginning 9 months ago FINDINGS: Total right knee arthroplasty. Stable alignment compared with 06/01/2024 No fracture No loosening of the prosthetic components IMPRESSION: Total right knee arthroplasty with satisfactory alignment
== END | disposition home or self-care (01) ==
PROVIDERS: PCP Orthopaedic Surgery; Referring Provider Orthopaedic Surgery; Visit Provider Orthopaedic Surgery
DX: M25.561 Pain in right knee (principal); Z96.651 Presence of right artificial knee joint
CPT/HCPCS: 73562

== ENCOUNTER 2024-12-24 11:15 | Outpatient (RCR) | payer MEDICARE, MEDICAID, SELFPAY ==
--- NOTE | 2024-12-05 00:05 | CTCCONSULT_ITS ---
Patient: RICARDA LEES : 1960 MR#: [id number] Page 4 of 5 CONSULTATION NOTE DATE OF CONSULTATION: 12/04/2024 NAME: RICARDA LEES ACCOUNT: [id number] : 1960 AGE: 64 REFERRING PHYSICIAN: Dipak Rivero MD PRIMARY PHYSICIAN: Dipak Rivero MD REASON FOR VISIT: Breast cancer ER/RI positive ONCOLOGY HISTORY: DIAGNOSIS: Malignant neoplasm of lower-outer quadrant of right female breast [ICD10] C50.511 DATE OF DIAGNOSIS: 09/06/2024 STAGE/TNM: Stage II T2 N0 M0 ER positive RI positive HER2 negative TREATMENT HISTORY: Care?Plan Start?Date Cycle Day Intent tamoxifen 20 mg daily HISTORY OF PRESENT ILLNESS: 64-year-old female is diagnosed with breast cancer after she noted nodular change in the left upper quadrant of her right breast since June 2024. Patient previously had a left breast biopsy about 6 years ago which was benign. Patient was found to have irregular mass in the right breast 09/06/2024 breast biopsy was obtained showed invasive lobular carcinoma grade 3 mitotic score 2 overall grade 2 largest invasive focus in this biopsy 1.5 cm ER 90% positive progesterone 3% l HER2 negative and Ki-67 20% 10/23/2024 underwent a lumpectomy showed T2 N0 M0 ER positive RI positive HER2 negative Ki-67 20% OTHER MEDICAL HISTORY/CONDITIONS: DIABETES ON ORAL MEDS HYPERTENSION SHINGLES (SEPTEMBER 2024) TUMMY TUCK 16YEARS AGO BREAST REDUCTION SURGERY TUBAL LIGATION (1988) TOTAL KNEE REPLACEMENT RIGHT (FEBRUARY 2024 ) TOTAL KNEE REPLACEMENT LEFT (2018) FAMILY HISTORY: Father:?FATHER?PROSTATE? Mother:??MOTHER?UTERINE?CANCER? [place] BROTHER COLON CANCER DX AGE 45 LIVING Children:?DENIES Cancer?History:?RIGHT?BREAST?CANCER SOCIAL HISTORY: Occupational?History:?RETIRED FROM [employer] Education?Level:?Completed something less than 8th grade Marital?Status:?Life?Partner Tobacco?Pack?per?Day:?0 Tobacco?Use:?DENIES ETOH?Use:?DENIES Drug?Note:?DENIES Social History Note:?LIVES WITH PARTNER DAUGHTER DIESEL LUBE TECH HISTORY: Menarche?-?Age:?15 Menopause:?48 Hormone?Use:?DENIES :?3 Live?Births:?3 Age?1st?:?20 Painful?intercourse:?N-No Gynecological?Note:?LAST PAP MORE THAN 10 YEARS AGO MEDICATIONS: 1. amlodipine - 10 mg As directed 2. cyclobenzaprine - 10 mg Daily 3. omeprazole - 40 mg Daily 4. Ozempic - 0.25 mg Weekly 5. pioglitazone - 15 mg Daily 6. tamoxifen - 20 mg 1 tab Daily 7. tramadol - 50 mg As directed 8. Trazodone - 50 mg Daily Medications Last Reconciled by Fatou Spears RN on 12/04/2024 ALLERGIES: No Known Allergies REVIEW OF SYSTEMS: A complete 14-point review of systems was performed and is negative except as noted in interval history. PHYSICAL EXAMINATION: VITAL SIGNS: Temperature?98.5, B/P?138/85, Height?60.5?inches, Oxygen?Saturation?99% Weight?160?lbs (Change?since?11/20/24:?1?lbs) PAIN: 0 - No pain ECOG Performance Status: 0 - Asymptomatic and fully active GENERAL APPEARANCE: Appears well, in no apparent distress, appropriately interactive. HEENT: Normocephalic, no temporal wasting, normal conjunctiva, no scleral icterus, normal hearing, lips without lesions, neck normal range of motion. CARDIOVASCULAR: Not assessed. PULMONARY: Normal respiratory effort, no respiratory distress or use of accessory muscles, speaking in full sentences, no tachypnea. EXTREMITIES: No pedal edema or cyanosis. SKIN: Normal skin appearance. NEUROLOGIC: Alert and oriented x4. PSHYCHIATRIC patient is very anxious breast examination shows well-healed breast with no masses in either breast or axilla LABORATORY DATA: I have personally reviewed and interpreted each of Ms. Lees?s relevant lab tests, abnormal findings are below: Date ASSESSMENT/PLAN: Stage II T2 N0 M0 lobular invasive carcinoma of the right breast upper outer quadrant Oncotype score 23 benefit of chemo less than 1% risk of recurrence with antiendocrine therapy at 9 years is 9% Discussed with patient Discussed antiendocrine therapy including tamoxifen and anastrozole Patient already have lots of menopausal symptoms as well as anxiety Patient is active Will prefer to start on tamoxifen to see tolerance Will see her back in 4 weeks after starting drug Patient will first complete her radiation for 3 weeks and then start tamoxifen ORDERS: Bone density, radhames testing RETURN TO CLINIC: I will see her back in the clinic in 2 months. BILLING AND COMPLIANCE: I reviewed external records from providers outside my specialty as summarized above. I spent a total of 50 minutes on this patient?s care on the day of their visit excluding time spent related to any billed procedures. This time includes time spent with the patient as well as time spent documenting in the medical record, reviewing patients records and tests, obtaining history, placing orders, communicating with other healthcare professionals, counseling the patient, family or caregiver, and/or care coordination for the diagnoses above. Electronically Signed by: Dipak Rivero MD T: 12:03 AM CC: Jay?JADYN Bonilla PCP: Jay Bonilla Referring: Colton Larson This document was completed utilizing speech recognition software. Grammatical errors, random word insertions, pronoun errors, and incomplete sentences are an occasional consequence of this system due to software limitations, ambient noise, and hardware issues. Any formal questions or concerns about the content, text or information contained within the body of this dictation should be directly addressed to the provider for clarification.
--- NOTE | 2024-12-18 06:58 | CTCSNOTE_ITS ---
[facility] [address], [place] [address] [place] Simulation Note Date: 12/18/2024 MR# [id number] Name: RICARDA LEES : 1960 (A) DIAGNOSIS: C50.511 Malignant neoplasm of lower-outer quadrant of right female breast (B) Patient was placed in supine position and used vaklok for immobilization purposes. (C) CT slices included R breast (D) 3 D Will be needed for maximum sparing of adjacent normal critical structures. (E) Patient tolerated the simulation well and left the room in good condition. Electronically signed by: Jay Bonilla MD, ANDREZR 12/18/2024 6:55 AM
== END 2024-12-24 23:59 | disposition home or self-care (01) ==
LOC: SCTC 11:15
PROVIDERS: PCP Nurse Practitioner Family; Referring Provider Internal Medicine Hematology & Oncology; Visit Provider Internal Medicine Hematology & Oncology
DX: Z51.0 Encounter for antineoplastic radiation therapy (principal); C50.511 Malignant neoplasm of lower-outer quadrant of right female breast; Z17.0 Estrogen receptor positive status [ER+]; Z17.21 Progesterone receptor positive status; Z17.32 Human epidermal growth factor receptor 2 negative status; Z79.810 Long term (current) use of selective estrogen receptor modulators (SERMs); Z79.811 Long term (current) use of aromatase inhibitors; F41.9 Anxiety disorder, unspecified; Z90.11 Acquired absence of right breast and nipple
CPT/HCPCS: 77014; 77280; 77290; 77295; 77300; 77334; 77412; 99213; 99424; 99425; G0463

== ENCOUNTER → 2024-12-31 | Outpatient (CLI) | payer MEDICARE, MEDICAID, SELFPAY ==
[2024-12-31 09:36] LABS: Misc Send Out* See Sep Rpt
== END | disposition home or self-care (01) ==
PROVIDERS: PCP Internal Medicine Hematology & Oncology; Referring Provider Internal Medicine Hematology & Oncology; Visit Provider Internal Medicine Hematology & Oncology
DX: C50.511 Malignant neoplasm of lower-outer quadrant of right female breast (principal)

== ENCOUNTER → 2025-01-11 | Outpatient (CLI) | payer MEDICARE, MEDICAID, SELFPAY ==
--- NOTE | 2025-01-11 14:00 | XR_ITS ---
Examination: Bone densitometry Date and time of exam:January 11, 2025 1422 hours INDICATIONS: Menopause age 46 calcium and vitamin D 3 years, diabetic Technique: Lumbar spine and hip total bone mineralization values of an calculated. Peak reference and age match control results have been displayed. Findings: Lumbar spine total bone mineralization is0.951 gm/cm2. This is 0.9 standard deviations below peak reference. This is 0.8 standard deviations above age-matched controls. Hip total bone mineralization is 0.897 gm/cm2 This is 0.5 standard deviations below peak reference. This is 0.6 standard deviations above age-matched controls Impression: There is normal mineralization based on lumbar spine measurements. There is normal mineralization based on hip measurements
== END | disposition home or self-care (01) ==
PROVIDERS: PCP Nurse Practitioner Family; Referring Provider Internal Medicine Hematology & Oncology; Visit Provider Internal Medicine Hematology & Oncology
DX: C50.511 Malignant neoplasm of lower-outer quadrant of right female breast (principal)
CPT/HCPCS: 77080

== ENCOUNTER 2025-01-18 10:58 | Outpatient (RCR) | payer MEDICARE, MEDICAID, SELFPAY | END 2025-01-23 23:59 | disposition home or self-care (01) | LOC: SCTC 10:58 | PROVIDERS: PCP Family Medicine; Referring Provider Family Medicine; Visit Provider Internal Medicine Hematology & Oncology | DX: Z51.0 Encounter for antineoplastic radiation therapy (principal); C50.511 Malignant neoplasm of lower-outer quadrant of right female breast; Z17.0 Estrogen receptor positive status [ER+]; Z17.21 Progesterone receptor positive status; Z17.32 Human epidermal growth factor receptor 2 negative status; L59.9 Disorder of the skin and subcutaneous tissue related to radiation, unspecified; Y84.2 Radiological procedure and radiotherapy as the cause of abnormal reaction of the patient, or of later complication, without mention of misadventure at the time of the procedure | CPT/HCPCS: 77290; 77300; 77332; 77336; 77412; 77417 ==

== ENCOUNTER 2025-02-07 14:01 | Outpatient (RCR) | payer MEDICARE, MEDICAID, SELFPAY ==
--- NOTE | 2025-01-31 11:10 | CTCTSUMM_ITS ---
[facility] [address], [place] [address] Treatment Summary Date: 01/31/2025 MR#: [id number] Name: RICARDA LEES : 1960 Dx: C50.511 Referring Physician: Colton Larson MD (A) Diagnosis: [ICD10] C50.511 Malignant neoplasm of lower-outer quadrant of right female breast IIA (B) Aim of Treatment: ??Curative (C) Concomitant Chemotherapy: No (D) Radiation Dates: 12/04/2024 through 01/18/2025 Treatment Prescription LUQ R breast Electron boost 15 MeV E- 1,000 cGy 5 200 cGy Approved R breast 2 FIELD SEG Mixed Mode 4,005 cGy 15 267 cGy Approved (E) All riojas were treated using customized MLC Blocks (F) Finding at Discharge: Seen for first follow-up on 01/31/2025. Patient was recovering from the skin effects had some minor right shoulder pain. (G) Discharge Instructions and F/U Appt was given: The patient was also advised to continue follow-up with Dr. Rivero and primary care physician: (H) Cc: Colton Dela Cruz MD Electronically signed by: Jay Bonilla MD, ANDREZR 01/31/2025 11:07 AM
--- NOTE | 2025-02-14 14:18 | CTCFLWUP_ITS ---
Patient: RICARDA LEES : 1960 Page 5 of 6 FOLLOW UP NOTE DATE OF SERVICE: 02/07/2025 NAME: RICARDA LEES ACCOUNT: [id number] : 1960 AGE: 64 INTERVAL HISTORY: Subjective: Chief Complaint Follow-up after radiation treatment, review of tamoxifen medication History of Present Illness Ricarda is a female patient with a history of breast cancer who recently completed radiation therapy and started tamoxifen treatment last month. She reports experiencing significant fatigue during her radiation treatment. The patient has been taking tamoxifen as prescribed since starting it last month, along with calcium and vitamin D supplements daily. Ricarda's parents both from cancer; her father had prostate cancer, and her mother had groin cancer. They were brought to [place] for treatment, but unfortunately, it was too late for effective intervention. This family history has understandably caused some worry for the patient. The patient is planning a trip to [place] within the next month. She has been advised about precautions to take with her tamoxifen medication during travel, including not taking it when sitting for extended periods (more than 2-3 hours) and resuming once at her destination. Ricarda currently takes all her medications in the morning. Medications and Supplements - Tamoxifen - Started last month - Takes in the morning - Calcium - Takes daily - Vitamin D - Takes daily Review of Systems General: Positive for fatigue. Objective: N/A ONCOLOGY HISTORY: DIAGNOSIS: Malignant neoplasm of lower-outer quadrant of right female breast [ICD10] C50.511 DATE OF DIAGNOSIS: 09/06/2024 STAGE/TNM: Stage II T2 N0 M0 ER positive DC positive HER2 negative TREATMENT HISTORY: Care?Plan Start?Date Cycle Day Intent HISTORY OF PRESENT ILLNESS: 64-year-old female is diagnosed with breast cancer after she noted nodular change in the left upper quadrant of her right breast since June 2024. Patient previously had a left breast biopsy about 6 years ago which was benign. Patient was found to have irregular mass in the right breast 09/06/2024 breast biopsy was obtained showed invasive lobular carcinoma grade 3 mitotic score 2 overall grade 2 largest invasive focus in this biopsy 1.5 cm ER 90% positive progesterone 3% l HER2 negative and Ki-67 20% 10/23/2024 underwent a lumpectomy showed T2 N0 M0 ER positive DC positive HER2 negative Ki-67 20% OTHER MEDICAL HISTORY/CONDITIONS: DIABETES ON ORAL MEDS HYPERTENSION SHINGLES (SEPTEMBER 2024) TUMMY TUCK 16YEARS AGO BREAST REDUCTION SURGERY TUBAL LIGATION (1988) TOTAL KNEE REPLACEMENT RIGHT (FEBRUARY 2024 ) TOTAL KNEE REPLACEMENT LEFT (2018) FAMILY HISTORY: Father:?FATHER?PROSTATE? Mother:??MOTHER?UTERINE?CANCER? 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 amlodipine - 10 mg As directed 2. cyclobenzaprine - 10 mg Daily 3. omeprazole - 40 mg Daily 4. Ozempic - 0.25 mg Weekly 5. pioglitazone - 15 mg Daily 6. tamoxifen - 20 mg 1 tab Daily 7. tramadol - 50 mg As directed 8. Trazodone - 50 mg Daily Medications Last Reconciled by Vida aSlas MA on 02/07/2025 ALLERGIES: No Known Allergies REVIEW OF SYSTEMS: A complete 14-point review of systems was performed and is negative except as noted in interval history. PHYSICAL EXAMINATION: VITAL SIGNS: Temperature?98.2, B/P?137/76, Oxygen?Saturation?97% Weight?160?lbs (Change?since?01/31/25:?-1?lbs) PAIN: 0 - No pain GENERAL APPEARANCE: Appears well, in no apparent distress, appropriately interactive. HEENT: Normocephalic, no temporal wasting, normal conjunctiva, no scleral icterus, normal hearing, lips without lesions, neck normal range of motion. CARDIOVASCULAR: Not assessed. PULMONARY: Normal respiratory effort, no respiratory distress or use of accessory muscles, speaking in full sentences, no tachypnea. EXTREMITIES: No pedal edema or cyanosis. SKIN: Normal skin appearance. NEUROLOGIC: Alert and oriented x4. 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 Assessment: Patient has completed radiation therapy for breast cancer and initiated tamoxifen therapy last month. She experienced significant fatigue during radiation treatment. Family history is notable for cancer in both parents, with father having had prostate cancer and mother having had groin canc er. Patient is currently taking tamoxifen as part of her ongoing treatment plan. Plan: - Continue tamoxifen for 3 years, then reassess for potential change in therapy - Advise to discontinue tamoxifen during illness, travel, or when sitting for more than 2-3 hours - Can resume tamoxifen upon reaching destination if traveling - Take calcium and vitamin D supplements daily - Schedule follow-up appointment in 3 months, then every 6 months thereafter - Order mammogram 4-6 months post-surgery - Patient education provided: - Informed that missing one or two days of tamoxifen is acceptable - Counseled on potential link between stress and cancer risk - Cleared for travel to [place] within a month RETURN TO CLINIC: BILLING AND COMPLIANCE: I reviewed external records from providers outside my specialty as summarized above. I spent a total of 50 minutes on this patient?s care on the day of their visit excluding time spent related to any billed procedures. This time includes time spent with the patient as well as time spent documenting in the medical record, reviewing patients records and tests, obtaining history, placing orders, communicating with other healthcare professionals, counseling the patient, family or caregiver, and/or care coordination for the diagnoses above. Electronically Signed by: Dipak Rivero MD T: 6:47 AM CC: Jay?Irene,? PCP: Pamela Domínguez Referring: Pamela Domínguez This document was completed utilizing speech recognition software. Grammatical errors, random word insertions, pronoun errors, and incomplete sentences are an occasional consequence of this system due to software limitations, ambient noise, and hardware issues. Any formal questions or concerns about the content, text or information contained within the body of this dictation should be directly addressed to the provider for clarification.
== END 2025-02-23 23:59 | disposition home or self-care (01) ==
LOC: SCTC 14:01
PROVIDERS: PCP Nurse Practitioner Family; Referring Provider Nurse Practitioner Family; Visit Provider Internal Medicine Hematology & Oncology
DX: C50.511 Malignant neoplasm of lower-outer quadrant of right female breast (principal); Z17.0 Estrogen receptor positive status [ER+]; Z17.21 Progesterone receptor positive status; Z17.32 Human epidermal growth factor receptor 2 negative status; Z90.11 Acquired absence of right breast and nipple; Z92.3 Personal history of irradiation; Z79.810 Long term (current) use of selective estrogen receptor modulators (SERMs)
CPT/HCPCS: 99213; Q3014; G0463

== ENCOUNTER → 2025-02-19 | Outpatient (CLI) | payer MEDICARE, MEDICAID, SELFPAY ==
--- NOTE | 2025-02-19 | XR_ITS ---
Examination: Shoulder,right, 3 views Technique: Shoulder AP internal rotation, AP external rotation, Y view shoulder, 3 views Exam date and time :February 19, 2025 1121 hours INDICATIONS: Right shoulder pain beginning 12 years ago. FINDINGS: Prominent osteopenia. Moderate to advanced narrowing glenohumeral joint No fracture or dislocation IMPRESSION: Moderate to advanced narrowing glenohumeral joint
[2025-02-19 11:01] LABS: Collection Type, Urine Clean Catch
[2025-02-19 11:32] LABS: Bacteria,Urine Rare; Bilirubin,Urine Negative (Negative); Blood,Urine Negative (Negative); Clarity,Urine Clear (Clear/Hazy); Color,Urine Lt-Yellow (Lt Yel-Yel); Culture Indicated,Urine Not Indicated; Glucose, Urine 4+ (Negative); Ketones,Urine Negative (Negative); Leukocyte Esterase,Urine Negative (Negative); Nitrite,Urine Negative (Negative); Protein,Urine Negative (Neg - Trace); RBC,Urine 2 /hpf (0-3); Specific Gravity,Urine 1.027 (1.001-1.035); Squamous Epithelial Cell,Urine 4 /hpf (0-5); Urobilinogen,Urine Negative mg/dL (0.0-1.0); WBC,Urine 1 /hpf (0-5)
[2025-02-19 11:49] LABS: Basophils % (Auto) 0 % (0-2.5); Eosinophils # (Auto) 0.1 Thou/mm3 (0.0-0.5); Eosinophils % (Auto) 3 % (0-10); Hematocrit 39.8 % (36.0-46.0); Hemoglobin 13.9 g/dL (12.0-16.0); Immature Granulocytes % (Auto) 0 % (0-0); Immature Granulocytes Auto 0.01 Thou/mm3 (0.00-0.00); Lymphocytes # (Auto) 0.7 Thou/mm3 (1.0-4.8); Lymphocytes % (Auto) 22 % (10-50); Mean Corpuscular HGB Conc 34.9 g/dl (31.0-37.0); Mean Corpuscular Volume 89 fL (80-100); Monocytes # (Auto) 0.3 Thou/mm3 (0.0-0.8); Monocytes % (Auto) 9 % (0-12); Neutrophils # (Auto) 1.9 Thou/mm3 (1.8-7.7); Neutrophils % (Auto) 65 % (37-80); Nucleated Red Blood Cell % 0 /100 WBC (0); Platelet Count 122 Thou/mm3 (140-440); RDW Standard Deviation 48.7 fL (36.4-46.3); Red Blood Count 4.48 Miln/mm3 (4.00-5.20)
[2025-02-19 11:52] LABS: Glucose Estimated Average 103 mg/dL (80-131); Hemoglobin A1C 5.2 % Hgb (4.8-6.0)
[2025-02-19 11:55] LABS: Creatinine MALB Rnd Ur 92 mg/dL (30-125); Microalbumin Creat Ratio 17 mg/gCrea (<30); Microalbumin, Random Urine 16 mg/L (0-300)
[2025-02-19 12:06] LABS: White Blood Count 2.9 Thou/mm3 (3.6-11.0)
[2025-02-19 12:07] LABS: Alanine Aminotransferase 28 U/L (10-49); Albumin, Serum 4.2 gm/dL (3.4-4.8); Albumin/Globulin Ratio 1.6 (1.2-2.2); Alkaline Phosphatase 69 U/L (46-116); Anion Gap 10 (7-16); Aspartate Amino Transferase 40 U/L (0-34); BUN/Creatinine Ratio 23 Ratio (12-20); Bilirubin,Total 0.7 mg/dL (0.3-1.2); Blood Urea Nitrogen 14 mg/dL (9-23); Calcium 8.6 mg/dL (8.3-10.6); Calcium (Corrected) 8.6 mg/dL (8.5-10.1); Carbon Dioxide 24.6 mMol/L (20.0-31.0); Cardiac Risk Estimate 2.7 RATIO (3.7-5.6); Chloride 109 mMol/L (98-107); Cholesterol 197 mg/dL (132-200); Creatinine (Component) 0.6 mg/dL (0.6-1.3); Globulin 2.7 gm/dL (2.3-3.5); Glucose 96 mg/dL (74-106); HDL Cholesterol 73 mg/dL (40-60); LDL Cholesterol,Calculated 102 mg/dL (0-130); Osmolality,Calculated 287 (275-295); Potassium 4.1 mMol/L (3.4-5.1); Sodium 144 mMol/L (136-145); Total Protein 6.9 gm/dL (5.7-8.2); Triglycerides 110 mg/dL (30-150); eGFR > 60 See Note
== END | disposition home or self-care (01) ==
PROVIDERS: PCP Internal Medicine; Referring Provider Nurse Practitioner Family; Visit Provider Radiology Diagnostic Radiology
DX: M25.811 Other specified joint disorders, right shoulder (principal); Z00.00 Encounter for general adult medical examination without abnormal findings; E11.65 Type 2 diabetes mellitus with hyperglycemia; I10 Essential (primary) hypertension
CPT/HCPCS: 36415; 73030; 80053; 80061; 81001; 82043; 82570; 83036; 84443; 85025

== ENCOUNTER 2025-03-13 13:18 | Outpatient (RCR) | payer MEDICARE, MEDICAID, SELFPAY ==
--- NOTE | 2025-03-13 14:35 | CTCFLWUP_ITS ---
[facility] [address] [place], [place] [address] FOLLOW-UP NOTE Date: 03/13/2025 MR#: [id number] Name: RICARDA LEES : 1960 Dx: C50.511 Malignant neoplasm of lower-outer quadrant of right female breast Identification. Patient with stage IIa invasive lobular right breast receptor positive HER2 negative Oncotype Dx 23. Following partial mastectomy patient completed radiation therapy to the residual tissue right breast 4005 with thousand E boost on 01/18/2025. Patient having some tightness feeling along the boost site but generally feeling well overall. Cosmetically the right breast appears satisfactory. Patient is seeing Dr. Venegas regularly with tamoxifen as an estrogen modulator. I will see her as needed in the future. Electronically signed by: Jay Bonilla M.D. 03/13/2025 2:33 PM
== END 2025-03-25 23:59 | disposition home or self-care (01) ==
LOC: SCTC 13:18
PROVIDERS: PCP Internal Medicine; Referring Provider Internal Medicine; Visit Provider Radiology Therapeutic Radiology
DX: C50.511 Malignant neoplasm of lower-outer quadrant of right female breast (principal); Z17.0 Estrogen receptor positive status [ER+]; Z17.21 Progesterone receptor positive status; Z17.32 Human epidermal growth factor receptor 2 negative status; Z92.3 Personal history of irradiation; Z90.11 Acquired absence of right breast and nipple; Z79.810 Long term (current) use of selective estrogen receptor modulators (SERMs)
CPT/HCPCS: 99212; G0463

== ENCOUNTER 2025-03-21 13:37 | Outpatient (AMB) | payer MEDICARE, MEDICAID, SELFPAY ==
--- NOTE | 2025-03-21 13:59 | PD.ORTHCLVIS ---
Vital signs 03/21/25 14:00 Height 1.57 m Height Method Stated Weight 73.992 kg Weight Measurement Method Standing Scale BMI 29.9 BP 145/85 H Blood Pressure Source Automatic Cuff Blood Pressure Location Left Upper Arm Position Sitting Respiration 18 Pulse 97 Pulse Source Monitor Temp 97.4 F Temp Source Temporal Artery Scan Pulse Oximetry (%) 98 Oxygen Delivery Method Room Air Med/Allergies Allergies & Medications Allergies No Known Allergies Allergy (Verified 03/21/25 14:00) Medication Reconciliation montelukast 10 mg tablet 10 mg PO DAILY PRN Allergy Symptoms 09/16/23 [History Confirmed 03/21/25] omeprazole 40 mg capsule,delayed release 40 mg PO QDAY 04/05/24 [History Confirmed 03/21/25] pioglitazone 15 mg tablet 15 mg PO QAM 04/05/24 [History Confirmed 03/21/25] alprazolam 0.25 mg tablet 0.25 mg PO QDAY 09/14/24 [History Confirmed 03/21/25] Held on 09/14/24. Instructions: Resume on 09/15/24. amlodipine 5 mg tablet 5 mg PO QDAY 09/14/24 [History Confirmed 03/21/25] semaglutide 0.25 mg or 0.5 mg (2 mg/3 mL) subcutaneous pen injector (Ozempic) 0.25 mg subcut QWEEK 09/14/24 [History Confirmed 03/21/25] Exam Exam Patient is in no acute distress and is cooperative with the examination today. Patient has a normal mood and affect. Breathing is nonlabored. In no respiratory distress. Bilateral extremities were evaluated and demonstrates sensation intact to light touch. Palpable pedal pulses are present. No significant edema is present. Right knee incision is clean dry and intact. Range of motion is 0 to 115 degrees. The knee feels Very loose globally. There is greater than 1 cm of medial lateral translation as well as AP instability. Right knee x-rays demonstrate a cemented total knee replacement in good alignment. The tibial component is below the fibula indicating that there was a large tibial resection. Assessment and Plan Problem List (1) Knee instability: Status: Acute Plan: Patient is a 64-year-old female status post right total knee replacement 1 year ago. She reports her knee feels very unstable and she does not trust it. She reports that it feels like it is getting give out. I would recommend upsizing the tibial component as on x-ray appears that there is quite a large tibial resection. We will upsized the tibial component and likely changed to a medial stabilized component. We discussed the risks of surgery, Including infection, persistent instability, damage to nerves and vessels. I would like to rule out infection before we do this. We would order an ESR and CRP We discussed revision knee replacement in great detail. We Will likely just upsize the polyethylene. Office Procedures GNS Level of Care Nursing/Assessment Patient Status: Initial/New Patient Nursing Assessment/Reassesment: Medication Reconciliation, Update PMH in EMR and Vital Signs Coordination of Care: Complex Care and Chronic Disease 1-5, Education Complex Pt/Fam, Consent,records obtained, informed consent, 1 Ins Authorization, Lab and Imaging orders, Results/Orders obtained and Staff clarify orders New Patient Charge New Patient Point Assignment: 1124 New Patient Point Charge: SOLUTIONS MANAGER Level 4 (2681-2797) MA Intake Visit Data Collection New Patient or Established: New Patient (never been to [facility]) Reason for Visit:: R KNEE PAIN HISTORY OF TKA Seen by Clinical Staff ONLY (RN/MA): No Petroleum Geologist Required: Yes PCP or OBGYN visit in last 3 months: Yes Hx Now: No Do You Feel Safe at Home: Yes Authorities Contacted: N/A Questionairres Past Medical History Past Medical History Have you ever been diagnosed with any of the following: Neurological Problems Seizures: No Cardiology Problems Congestive Heart Failure: No Hypertension: Yes Respiratory Problems Chronic Obstructive Pulmonary Disease (COPD): No Asthma: No Sleep Apnea: No Smoking: No Smoking Exposure: No Stomache/Intestinal Problems Hepatitis: No Cirrhosis: Yes Diverticulitis: Yes Diverticulosis: Yes Gastroesophageal Reflux Disease: No Genital/Urinary Problems Renal Disease: Yes Reproductive Problems Previous Pregnancies: Yes Musculoskeletal Problems Arthritis: Yes Endocrine Problems Diabetes Mellitus Type 1: No Diabetes Mellitus Type 2: Yes Blood Problems Sickle Cell Disease: No Psychologic Problems Depression: Yes Anxiety: Yes Other Problems Hospitalization: No Down Syndrome: No Developmental Delay: No Shingles: No Falls: No Blood Transfusions: No Blood Transfusion Reaction: No Anesthesia Reactions: No Chemotherapy: No Radiation Therapy: No Chicken Pox: Yes Measles: Yes Mumps: No Cancer: No Subjective Visit Visit for: new patient and knee Immunization / Flu Flu Vaccine in the Last 12 Months: No Flu Vaccine Exclusion Criteria: No Exclusion Criteria History of Present Illness Chief complaint: Right knee pain Patient is a 64-year-old female with a right total knee replacement in February 2024. She reports significant knee pain since the surgery. She reports that there is pain only when she is walking. She reports her knee feels unstable and is cracking and it feels like it wants to give out. She reports that she does not trust her knee. There is swelling sometimes. Pain Pain level (0-10): 10 Pain duration: ALL DAY Pain location: inside (medial), outside (lateral), anterior and posterior Pain quality: dull, aching and tingling Pain timing: other (specify) (FEELS LOSE INSIDE/POPPING) Ambulatory data Ambulatory device: none Treatments Improvement with previous injections: No Improvement with PT: No Improvement with NSAIDS: no Review of Systems Review of Systems: All systems negative unless otherwise noted in HPI.
[2025-03-21 14:00] VITALS: BP 145/85; PULSE 97; RESP 18; TEMP 36.3; O2SAT 98; BMI 29.9
== END 2025-03-21 14:20 | disposition home or self-care (01) ==
PROVIDERS: PCP Nurse Practitioner Family; Referring Provider Nurse Practitioner Family; Supervising Provider Orthopaedic Surgery Adult Reconstructive Orthopaedic Surgery; Visit Provider Orthopaedic Surgery Adult Reconstructive Orthopaedic Surgery
DX: M23.51 Chronic instability of knee, right knee (principal); Z96.651 Presence of right artificial knee joint; I10 Essential (primary) hypertension; E11.9 Type 2 diabetes mellitus without complications
CPT/HCPCS: 99204; G0463

== ENCOUNTER → 2025-03-25 | Outpatient (CLI) | payer MEDICARE, MEDICAID, SELFPAY ==
[2025-03-25 11:37] LABS: Basophils % (Auto) 0 % (0-2.5); Eosinophils # (Auto) 0.1 Thou/mm3 (0.0-0.5); Eosinophils % (Auto) 5 % (0-10); Hematocrit 37.6 % (36.0-46.0); Hemoglobin 13.4 g/dL (12.0-16.0); Immature Granulocytes % (Auto) 0 % (0-0); Immature Granulocytes Auto 0.01 Thou/mm3 (0.00-0.00); Lymphocytes # (Auto) 0.9 Thou/mm3 (1.0-4.8); Lymphocytes % (Auto) 29 % (10-50); Mean Corpuscular HGB Conc 35.6 g/dl (31.0-37.0); Mean Corpuscular Hemoglobin 31.2 pg (25.0-35.0); Mean Corpuscular Volume 88 fL (80-100); Monocytes # (Auto) 0.3 Thou/mm3 (0.0-0.8); Monocytes % (Auto) 9 % (0-12); Neutrophils # (Auto) 1.8 Thou/mm3 (1.8-7.7); Neutrophils % (Auto) 57 % (37-80); Nucleated Red Blood Cell % 0 /100 WBC (0); Platelet Count 118 Thou/mm3 (140-440); RDW Standard Deviation 44.1 fL (36.4-46.3); Red Blood Count 4.29 Miln/mm3 (4.00-5.20); White Blood Count 3.1 Thou/mm3 (3.6-11.0)
[2025-03-25 11:54] LABS: Alanine Aminotransferase 22 U/L (10-49); Albumin/Globulin Ratio 1.6 (1.2-2.2); Alkaline Phosphatase 62 U/L (46-116); Anion Gap 7 (7-16); Aspartate Amino Transferase 34 U/L (0-34); BUN/Creatinine Ratio 22 Ratio (12-20); Bilirubin,Total 0.6 mg/dL (0.3-1.2); Blood Urea Nitrogen 11 mg/dL (9-23); Calcium 9.3 mg/dL (8.3-10.6); Calcium (Corrected) 9.3 mg/dL (8.5-10.1); Carbon Dioxide 24.7 mMol/L (20.0-31.0); Chloride 109 mMol/L (98-107); Creatinine (Component) 0.5 mg/dL (0.6-1.3); Globulin 2.5 gm/dL (2.3-3.5); Glucose 97 mg/dL (74-106); Osmolality,Calculated 280 (275-295); Potassium 3.8 mMol/L (3.4-5.1); Sodium 141 mMol/L (136-145); Total Protein 6.5 gm/dL (5.7-8.2); eGFR > 60 See Note
== END | disposition home or self-care (01) ==
PROVIDERS: PCP Nurse Practitioner Family; Referring Provider Internal Medicine Hematology & Oncology; Visit Provider Internal Medicine Hematology & Oncology
DX: C50.511 Malignant neoplasm of lower-outer quadrant of right female breast (principal)
CPT/HCPCS: 36415; 80053; 85025

== ENCOUNTER 2025-04-01 15:40 | Outpatient (RCR) | payer MEDICARE, MEDICAID, SELFPAY | END 2025-04-25 23:59 | disposition home or self-care (01) | LOC: SCTC 15:40 | PROVIDERS: PCP Nurse Practitioner Family; Referring Provider Nurse Practitioner Family; Visit Provider Nurse Practitioner Family | DX: C50.411 Malignant neoplasm of upper-outer quadrant of right female breast (principal); Z17.0 Estrogen receptor positive status [ER+]; Z17.21 Progesterone receptor positive status; Z17.32 Human epidermal growth factor receptor 2 negative status; Z92.3 Personal history of irradiation; Z79.810 Long term (current) use of selective estrogen receptor modulators (SERMs); Z80.42 Family history of malignant neoplasm of prostate; Z80.8 Family history of malignant neoplasm of other organs or systems | CPT/HCPCS: 99212; G0463 ==

== ENCOUNTER → 2025-04-01 | Outpatient (CLI) | payer MEDICARE, MEDICAID, SELFPAY ==
[2025-04-01 15:59] LABS: Sed Rate (ESR) 13 mm/hr (0-30)
[2025-04-01 16:10] LABS: C-Reactive Protein < 0.5 mg/dL (0.0-0.9)
== END | disposition home or self-care (01) ==
PROVIDERS: PCP Nurse Practitioner Family; Referring Provider Orthopaedic Surgery Adult Reconstructive Orthopaedic Surgery; Visit Provider Orthopaedic Surgery Adult Reconstructive Orthopaedic Surgery
DX: Z01.89 Encounter for other specified special examinations (principal)
CPT/HCPCS: 36415; 85652; 86140

== ENCOUNTER → 2025-04-04 | Outpatient (CLI) | payer MEDICARE, MEDICAID, SELFPAY ==
--- NOTE | 2025-04-04 10:30 | XR_ITS ---
Examination: Diagnostic digital mammography, bilateral Computer aided detection 3-D breast Tomosynthesis, bilateral Date and time of exam: April 04, 2025 1042 hours Compared to mammograms dating to November 20, 2018 Technique: Nonmagnified MLO, CC views of the breasts to been obtained, reconstructed from 3-D Tomosynthesis images. R2 computer aided detection program utilized for evaluation of suspicious masses and/or abnormal calcifications. 3-D Tomosynthesis images obtained. Findings: Scattered areas of fibroglandular density. Extensive scar formation right breast consistent with patient's surgical history right breast Benign calcifications Impression: BI-RADS Category 3: Probably benign findings Recommend 6 month right breast sonogram follow-up to document stability of architectural distortion right breast.
== END | disposition home or self-care (01) ==
LOC: CDIM 10:07
PROVIDERS: Referring Provider Surgery; Visit Provider Surgery
DX: R92.333 Mammographic heterogeneous density, bilateral breasts (principal); C50.411 Malignant neoplasm of upper-outer quadrant of right female breast
CPT/HCPCS: 77062; 77066; G0279

== ENCOUNTER 2025-04-09 13:41 | Outpatient (AMB) | payer MEDICARE, MEDICAID, SELFPAY ==
--- NOTE | 2025-04-09 13:50 | PD.ORTHCLVIS ---
Vital signs 04/09/25 13:51 Height 1.57 m Height Method Stated Weight 75.353 kg Weight Measurement Method Standing Scale BMI 30.5 BP 130/79 Blood Pressure Source Automatic Cuff Blood Pressure Location Left Upper Arm Position Sitting Respiration 18 Pulse 96 Pulse Source Monitor Temp 98.0 F Temp Source Temporal Artery Scan Pulse Oximetry (%) 97 Oxygen Delivery Method Room Air Med/Allergies Allergies & Medications Allergies No Known Allergies Allergy (Verified 04/09/25 13:55) Medication Reconciliation montelukast 10 mg tablet 10 mg PO DAILY PRN Allergy Symptoms 09/16/23 [History Confirmed 04/09/25] omeprazole 40 mg capsule,delayed release 40 mg PO QDAY 04/05/24 [History Confirmed 04/09/25] pioglitazone 15 mg tablet 15 mg PO QAM 04/05/24 [History Confirmed 04/09/25] alprazolam 0.25 mg tablet 0.25 mg PO QDAY 09/14/24 [History Confirmed 04/09/25] Held on 09/14/24. Instructions: Resume on 09/15/24. amlodipine 5 mg tablet 5 mg PO QDAY 09/14/24 [History Confirmed 04/09/25] semaglutide 0.25 mg or 0.5 mg (2 mg/3 mL) subcutaneous pen injector (Ozempic) 0.25 mg subcut QWEEK 09/14/24 [History Confirmed 04/09/25] Exam Exam Patient is in no acute distress and is cooperative with the examination today. Patient has a normal mood and affect. Breathing is nonlabored. In no respiratory distress. Bilateral extremities were evaluated and demonstrates sensation intact to light touch. Palpable pedal pulses are present. No significant edema is present. Right knee incision is clean dry and intact. Range of motion is 0 to 115 degrees. The knee feels Very loose globally. There is greater than 1 cm of medial lateral translation as well as AP instability. Right knee x-rays demonstrate a cemented total knee replacement in good alignment. The tibial component is below the fibula indicating that there was a large tibial resection. Assessment and Plan Problem List (1) Knee instability: Status: Acute Plan: Patient is a 64-year-old female status post right total knee replacement 1 year ago. She reports her knee feels very unstable and she does not trust it. She reports that it feels like it is getting give out. I would recommend upsizing the tibial component as on x-ray appears that there is quite a large tibial resection. We will upsized the tibial component and likely changed to a medial stabilized component. We discussed the risks of surgery, Including infection, persistent instability, damage to nerves and vessels. Her ESR and CRP are normal. We will upsize the polyliner and converted to a medial stabilized Office Procedures GNS Level of Care Nursing/Assessment Patient Status: Established Patient Nursing Assessment/Reassesment: Medication Reconciliation, Update PMH in EMR and Vital Signs Coordination of Care: Complex Care and Chronic Disease 1-5, Education Complex Pt/Fam, Consent,records obtained, informed consent, Results/Orders obtained and Staff clarify orders Special Needs: Language special needs Established Patient Charge Established Patient Point Assignment: 95 Established Patient Point Charge: Level 3 (80-115) MA Intake Visit Data Collection New Patient or Established: Established Patient (seen at [facility] within 3 years) Reason for Visit:: PRE OP RIGHT KNEE REVISION F/U CLEARANCE Seen by Clinical Staff ONLY (RN/MA): No Supervisor Wire Rope Fabrication Required: Yes PCP or OBGYN visit in last 3 months: Yes Hx Now: No Do You Feel Safe at Home: Yes Authorities Contacted: N/A Questionairres Past Medical History Past Medical History Have you ever been diagnosed with any of the following: Neurological Problems Seizures: No Cardiology Problems Congestive Heart Failure: No Hypertension: Yes Respiratory Problems Chronic Obstructive Pulmonary Disease (COPD): No Asthma: No Sleep Apnea: No Smoking: No Smoking Exposure: No Stomache/Intestinal Problems Hepatitis: No Cirrhosis: Yes Diverticulitis: Yes Diverticulosis: Yes Gastroesophageal Reflux Disease: No Genital/Urinary Problems Renal Disease: Yes Reproductive Problems Previous Pregnancies: Yes Musculoskeletal Problems Arthritis: Yes Endocrine Problems Diabetes Mellitus Type 1: No Diabetes Mellitus Type 2: Yes Blood Problems Sickle Cell Disease: No Psychologic Problems Depression: Yes Anxiety: Yes Other Problems Hospitalization: No Down Syndrome: No Developmental Delay: No Shingles: No Falls: No Blood Transfusions: No Blood Transfusion Reaction: No Anesthesia Reactions: No Chemotherapy: No Radiation Therapy: No Chicken Pox: Yes Measles: Yes Mumps: No Cancer: No Subjective Visit Visit for: follow up visit and knee Immunization / Flu Flu Vaccine in the Last 12 Months: No Flu Vaccine Exclusion Criteria: No Exclusion Criteria History of Present Illness Chief complaint: PRE OP RIGHT KNEE REVISION F/U CLEARANCE Patient is a 64-year-old female with a right total knee replacement in February 2024. She reports significant knee pain since the surgery. She reports that there is pain only when she is walking. She reports her knee feels unstable and is cracking and it feels like it wants to give out. She reports that she does not trust her knee. There is swelling sometimes. We received her ESR and CRP values and her ESR 13 and CRP 0.5 Personal History BMI Counceling provided: Yes Pain Pain level (0-10): 8 Pain duration: ALL DAY Pain location: anterior Pain quality: sharp Pain timing: increases with activity Associated signs & symptoms: none Ambulatory data Ambulatory device: none Treatments Improvement with previous injections: No Improvement with PT: No Improvement with NSAIDS: n/a Review of Systems Review of Systems: All systems negative unless otherwise noted in HPI.
[2025-04-09 13:51] VITALS: BP 130/79; PULSE 96; RESP 18; TEMP 36.7; O2SAT 97; BMI 30.5
== END 2025-04-09 14:15 | disposition home or self-care (01) ==
LOC: HODSRG 13:41
PROVIDERS: Supervising Provider Orthopaedic Surgery Adult Reconstructive Orthopaedic Surgery; Visit Provider Orthopaedic Surgery Adult Reconstructive Orthopaedic Surgery
DX: M23.50 Chronic instability of knee, unspecified knee (principal); Z96.651 Presence of right artificial knee joint; M25.561 Pain in right knee; I10 Essential (primary) hypertension; E11.9 Type 2 diabetes mellitus without complications
CPT/HCPCS: 99213; G0463

== ENCOUNTER 2025-04-22 09:35 | Inpatient (IN) | payer MEDICARE, MEDICAID, SELFPAY ==
--- NOTE | 2025-04-17 06:45 | EKG_ITS ---
[facility] Test Date: 2025-04-17 Pat Name: RICARDA LEES Department: Room: - Gender: Female Safety Investigator: ZEYAD : 1960 Requested By: Rickey Levy Order Number: [id number] Reading MD: Rickey Levy Measurements Intervals [place] Rate: 84 P: 41 HI: 136 QRS: 11 QRSD: 90 T: 50 QT: 368 QTc: 437 Interpretive Statements SINUS RHYTHM LOW QRS VOLTAGE IN PRECORDIAL LEADS [QRS DEFLECTION < 1.0 mV IN CHEST LEADS] Compared to ECG 09/20/2024 12:43:08 Low QRS voltage now present /store/S0/[id number].pdf
[2025-04-17 10:12] VITALS: BMI 27.2
[2025-04-17 11:42] LABS: Basophils # (Auto) 0.0 Thou/mm3 (0.0-0.2); Basophils % (Auto) 0 % (0-2.5); Eosinophils # (Auto) 0.1 Thou/mm3 (0.0-0.5); Eosinophils % (Auto) 3 % (0-10); Hematocrit 40.1 % (36.0-46.0); Hemoglobin 14.1 g/dL (12.0-16.0); Immature Granulocytes Auto 0.01 Thou/mm3 (0.00-0.00); Lymphocytes # (Auto) 1.0 Thou/mm3 (1.0-4.8); Lymphocytes % (Auto) 26 % (10-50); Mean Corpuscular HGB Conc 35.2 g/dl (31.0-37.0); Mean Corpuscular Hemoglobin 31.7 pg (25.0-35.0); Mean Corpuscular Volume 90 fL (80-100); Monocytes # (Auto) 0.4 Thou/mm3 (0.0-0.8); Monocytes % (Auto) 10 % (0-12); Neutrophils # (Auto) 2.3 Thou/mm3 (1.8-7.7); Neutrophils % (Auto) 61 % (37-80); Nucleated Red Blood Cell # 0.00 Thou/mm3 (0.00-0.00); Nucleated Red Blood Cell % 0 /100 WBC (0); Platelet Count 131 Thou/mm3 (140-440); RDW Standard Deviation 43.6 fL (36.4-46.3); Red Blood Count 4.45 Miln/mm3 (4.00-5.20); White Blood Count 3.8 Thou/mm3 (3.6-11.0)
[2025-04-17 11:43] LABS: INR 1.0 (0.9-1.3); Partial Thromboplastin Time 25.9 Seconds (22.0-36.0); Prothrombin Time 10.9 Seconds (9.0-12.2)
[2025-04-17 12:05] LABS: Alanine Aminotransferase 33 U/L (10-49); Albumin, Serum 4.2 gm/dL (3.4-4.8); Albumin/Globulin Ratio 1.4 (1.2-2.2); Alkaline Phosphatase 68 U/L (46-116); Anion Gap 10 (7-16); Aspartate Amino Transferase 43 U/L (0-34); BUN/Creatinine Ratio 14 Ratio (12-20); Bilirubin,Total 0.6 mg/dL (0.3-1.2); Blood Urea Nitrogen 10 mg/dL (9-23); Calcium 8.8 mg/dL (8.3-10.6); Calcium (Corrected) 8.8 mg/dL (8.5-10.1); Carbon Dioxide 24.4 mMol/L (20.0-31.0); Chloride 109 mMol/L (98-107); Creatinine (Component) 0.7 mg/dL (0.6-1.3); Estimated Creatinine Clearance 83.6 mL/min (>60); Globulin 3.1 gm/dL (2.3-3.5); Glucose 114 mg/dL (74-106); Osmolality,Calculated 284 (275-295); Potassium 4.3 mMol/L (3.4-5.1); Sodium 143 mMol/L (136-145); Total Protein 7.3 gm/dL (5.7-8.2); eGFR > 60 See Note
[2025-04-22] VITALS (14 sets, daily range): BP systolic 115–159; BP diastolic 63–92; PULSE 74–97; RESP 13–20; TEMP 36.2–36.8; O2SAT 95–100; BMI 30.8
[2025-04-22] MEDS: MELOXICAM 7.5 MG TABLET PO (10:09)
[2025-04-22] MEDS: PREGABALIN 75 MG CAPSULE PO (10:09)
[2025-04-22] MEDS: ACETAMINOPHEN 325 MG TABLET 650 MG PO (10:09)
--- NOTE | 2025-04-22 12:19 | XR_ITS ---
Examination: Right knee 2 views Technique one AP lateral right knee 2 views Date and time: April 22, 2025 1243 hours INDICATIONS: Postop knee replacement. FINDINGS: Total right knee arthroplasty. Satisfactory alignment. Moderate osteopenia. IMPRESSION: Total right knee arthroplasty with satisfactory alignment
--- NOTE | 2025-04-22 12:27 | PD.SUROPNT ---
Date of Procedure 04/22/25 Pre Op Diagnosis Right knee instability Post Op Diagnosis Right knee instability Procedure Right knee revision with upsizing and poly Findings Instability of the right knee. Procedure Description Indications: Patient is a pleasant 64-year-old female with right knee pain and symptoms of instability. She reports that her knee feels unstable and feels like it gives out. We thus discussed revision knee replacement as a reasonable option. I discussed with her that the components particularly the tibia is in slight valgus. We discussed removing the components and a poly exchange to a thicker poly that with a more constrained poly. She would like to go with a poly exchange rather than a full knee revision Procedure detail: Patient was brought to the office training room and was prepped and draped in usual sterile fashion. Surgical timeout was performed. The existing incision was used. An arthrotomy was made and a medial release was performed for better exposure. We performed 2 cultures. The synovium was removed and the knee was thoroughly irrigated. The knee was tested through flexion and extension and was found to be globally loose in both flexion and extension with greater than 5 mm of translation. We remove the existing poly and trialed different polyethylene's. We tried a medial congruent poly and found that a 16 poly which was an upsize of 5 mm provided adequate stability without sacrificing full extension. The knee was trialed and was found to be stable. We then inserted the final 16 mm medial congruent poly into the knee. The patient tolerated the procedure well The knee was closed in the usual fashion. The patella tracked well and 0 Vicryl and 2-0 Vicryl followed by 3-0 Monocryl was used Anesthesia GETA Implants cora Pathology / specimen None Pathology comment: none Estimated Blood Loss 150 Condition Stable Disposition same day Surgeon Juventino Santana MD Surgical Staff Operation Date: 04/22/25 15:00 Case Staff Anesthesiologist: Sudarshan Osuna RN First Assistant: Shara Jimenez
--- NOTE | 2025-04-22 12:37 | SUR.PHASEI ---
pt received from OR in recovery bay 5. pt awake and alert, breathing unlabored on oxymask 2l. v/s stable. pt dressing to right lower extremity cdi. report received from Tania PEARL and Dr. Osuna.
[2025-04-22] MEDS: fentaNYL CIT INJ 50 mCg/ML AMP 2ML 25 MCG IVP ×2 (13:38→14:05)
[2025-04-22] MEDS: HYDROmorphone INJ 2 MG/ML VIAL 0.4 MG IVP ×2 (14:35→16:12)
--- NOTE | 2025-04-22 14:35 | SUR.PHASEII ---
pt able to tolerate oral fluids without difficulty swallowing or nausea/vomiting.
--- NOTE | 2025-04-22 17:00 | SUR.PHASEII ---
pt awake and alert, breathing unlabored on room air. v/s stable. pt dressing to right lower extremity cdi. pt cleared by physical therapist Yogi. pt able to ambulate to bathroom using walker. d/c instructions given with s/o Andrea in room using roguer Gisell blue, all questions answered. pt d/c via wheelchair with all belongings.
== END 2025-04-22 17:00 | disposition home or self-care (01) | DRG 465 ==
LOC: S2W1 13:05
PROVIDERS: Anesthesiology; Admitting Provider Orthopaedic Surgery Adult Reconstructive Orthopaedic Surgery; PCP Nurse Practitioner Family; Visit Provider Orthopaedic Surgery Adult Reconstructive Orthopaedic Surgery
PROC: 0SPC09Z Removal of Liner from Right Knee Joint, Open Approach (ICD-10-PCS; principal; 2025-04-22 14:45)
DX: T84.022A Instability of internal right knee prosthesis, initial encounter (principal); I10 Essential (primary) hypertension; E11.9 Type 2 diabetes mellitus without complications; F32.A Depression, unspecified; F41.9 Anxiety disorder, unspecified; K21.9 Gastro-esophageal reflux disease without esophagitis; Z96.651 Presence of right artificial knee joint; Z79.85 Long-term (current) use of injectable non-insulin antidiabetic drugs; Z79.899 Other long term (current) drug therapy; Y79.2 Prosthetic and other implants, materials and accessory orthopedic devices associated with adverse incidents; Y83.8 Other surgical procedures as the cause of abnormal reaction of the patient, or of later complication, without mention of misadventure at the time of the procedure; Z85.3 Personal history of malignant neoplasm of breast
CPT/HCPCS: 36415; 73560; 80053; 85025; 85610; 85730; 87070; 87075; 87205; 93005; 97162; A4217; C1776; J0360; J0690; J1100; J1171; J2250; J2405; J2704; J2795; J3010; J3490; J7030; J7999; A4648; A4649; A9270

== ENCOUNTER 2025-05-07 11:00 | Outpatient (AMB) | payer MEDICARE, MEDICAID, SELFPAY ==
[2025-05-07 11:24] VITALS: BP 125/75; PULSE 88; RESP 18; TEMP 36.6; O2SAT 97; BMI 30.4
--- NOTE | 2025-05-07 11:24 | PD.ORTHCLVIS ---
Vital signs 05/07/25 11:24 Height 1.55 m Height Method Measured Weight 73.17 kg Weight Measurement Method Standing Scale BMI 30.4 BP 125/75 Blood Pressure Source Automatic Cuff Blood Pressure Location Left Upper Arm Position Sitting Respiration 18 Pulse 88 Pulse Source Monitor Temp 97.9 F Temp Source Temporal Artery Scan Pulse Oximetry (%) 97 Oxygen Delivery Method Room Air Med/Allergies Allergies & Medications Allergies No Known Allergies Allergy (Verified 05/07/25 11:30) Medication Reconciliation omeprazole 40 mg capsule,delayed release 40 mg PO QDAY 04/05/24 [History Confirmed 05/07/25] amlodipine 5 mg tablet 5 mg PO QDAY 09/14/24 [History Confirmed 05/07/25] semaglutide 0.25 mg or 0.5 mg (2 mg/3 mL) subcutaneous pen injector (Ozempic) 0.25 mg subcut QWEEK 09/14/24 [History Confirmed 05/07/25] amitriptyline 25 mg tablet 25 mg PO HS 04/17/25 [History Confirmed 05/07/25] calcium 600 mg capsule 600 mg PO DAILY 04/17/25 [History Confirmed 05/07/25] cholecalciferol (vitamin D3) 50 mcg (2,000 unit) capsule 2,000 unit PO QDAY 04/17/25 [History Confirmed 05/07/25] empagliflozin 10 mg tablet (Jardiance) 10 mg PO QAM 04/17/25 [History Confirmed 05/07/25] losartan 50 mg tablet 50 mg PO DAILY 04/17/25 [History Confirmed 05/07/25] magnesium 500 mg tablet 15 mg PO QDAY 04/17/25 [History Confirmed 05/07/25] mecobalamin (vitamin B12) 1,000 mcg chewable tablet 1,000 mcg PO QDAY 04/17/25 [History Confirmed 05/07/25] tamoxifen 20 mg tablet 20 mg PO DAILY 04/17/25 [History Confirmed 05/07/25] tramadol 50 mg tablet 50 mg PO Q8H PRN pain 04/17/25 [History Confirmed 05/07/25] vitamin E 268 mg (400 unit) capsule 268 mg PO QDAY 04/17/25 [History Confirmed 05/07/25] acetaminophen 500 mg tablet (Acetaminophen Extra Strength) 1,000 mg (2 x 500 mg) PO Q6H PRN pain #90 tabs 04/22/25 [Rx Confirmed 05/07/25] aspirin 81 mg tablet,delayed release 81 mg PO BID #60 tabs 04/22/25 [Rx Confirmed 05/07/25] doxycycline hyclate 100 mg tablet 100 mg PO BID #14 tabs 04/22/25 [Rx Confirmed 05/07/25] gabapentin 300 mg capsule 300 mg PO .qhs #30 caps 04/22/25 [Rx Confirmed 05/07/25] oxycodone 5 mg tablet 5 mg PO Q6H PRN pain #28 tabs 04/22/25 [Rx Confirmed 05/07/25] sennosides 8.6 mg-docusate sodium 50 mg tablet (Senna-S) 1 tab-cap PO QDAY #30 tabs 04/22/25 [Rx Confirmed 05/07/25] Exam Exam Patient is in no acute distress and is cooperative with the examination today. Patient has a normal mood and affect. Breathing is nonlabored. In no respiratory distress. Bilateral extremities were evaluated and demonstrates sensation intact to light touch. Palpable pedal pulses are present. No significant edema is present. Right knee incision is clean dry and intact. Range of motion is 0 to 115 degrees. The knee feels Very loose globally. There is greater than 1 cm of medial lateral translation as well as AP instability. Right knee x-rays demonstrate a cemented total knee replacement in good alignment. The tibial component is below the fibula indicating that there was a large tibial resection. Assessment and Plan Problem List (1) Knee instability: Status: Acute Plan: Patient is a 64-year-old female status post right total knee replacement revision with upsizing of the shoulder. She is doing well (2) Shoulder arthritis: Status: Acute Plan: She does have significant arthritis in the right shoulder. We thus discussed a right shoulder injection as an option After an alcohol prep, we injected 4 cc of 0.2% ropivacaine and 80 mg of Depo-Medrol into the shoulder going posteriorly into the shoulder. The patient tolerated the procedure well. Office Procedures GNS Level of Care Nursing/Assessment Patient Status: Established Patient Nursing Assessment/Reassesment: Medication Reconciliation, Update PMH in EMR and Vital Signs Coordination of Care: Complex Care and Chronic Disease 1-5, Education Complex Pt/Fam, Consent,records obtained, informed consent, Results/Orders obtained and Staff clarify orders Special Needs: Language special needs Established Patient Charge Established Patient Point Assignment: 95 Established Patient Point Charge: EP Level 3 (80-115) Surgical Proc/IM SQ injection Major Surgical Procedure: Yes (RIGHT SHOULDER INJECTION) Medication Given Medication Given Medication Given: Yes Documented Dose Given: 1 Route: Infiitration Medication Given Medication Given Medication Given: Yes Documented Dose Given: 4 Route: Infiitration Office Meds methylprednisolone acetate 80 mg/mL suspension for injection Performing Provider: Juventino Santana MD Performing Location: [employer] Administered by: Juventino Santana MD on 05/07/25 11:30 Dose Route Admin Location Dispensed Lot Number Expiration Date [facility] Sustainability Specialist 80 mg intra-articular SHOULDER 1 mL [id number] 02/23/27 [address]-1 [employer] ropivacaine (PF) 2 mg/mL (0.2 %) injection solution Performing Provider: Juventino Santana MD Performing Location: [employer] Administered by: Juventino Santana MD on 05/07/25 11:30 Dose Route Admin Location Dispensed Lot Number Expiration Date [facility] Sustainability Specialist 20 mL Infiltration SHOULDER 20 mL [id number] 07/26/25 18344-775-24 [facility] Intake Visit Data Collection New Patient or Established: Established Patient (seen at [facility] within 3 years) Reason for Visit:: 2 WEEK POST OP RIGHT KNEE REVISION Seen by Clinical Staff ONLY (RN/MA): No Reel Slitter Required: Yes PCP or OBGYN visit in last 3 months: Yes Hx Now: No Do You Feel Safe at Home: Yes Authorities Contacted: N/A Questionairres Past Medical History Past Medical History Have you ever been diagnosed with any of the following: Neurological Problems Seizures: No Cardiology Problems Congestive Heart Failure: No Hypertension: Yes Respiratory Problems Chronic Obstructive Pulmonary Disease (COPD): No Asthma: No Sleep Apnea: No Smoking: No Smoking Exposure: No Stomache/Intestinal Problems Hepatitis: No Cirrhosis: Yes Diverticulitis: Yes Diverticulosis: Yes Gastroesophageal Reflux Disease: No Genital/Urinary Problems Renal Disease: Yes Reproductive Problems Breast Cancer: Yes (right) Previous Pregnancies: Yes Musculoskeletal Problems Arthritis: Yes Head,Eye,Nose,Throat Problems Cataracts: Yes Endocrine Problems Diabetes Mellitus Type 1: No Diabetes Mellitus Type 2: Yes Blood Problems Sickle Cell Disease: No Psychologic Problems Depression: Yes Anxiety: Yes Other Problems Hospitalization: No Down Syndrome: No Developmental Delay: No Shingles: No Falls: No Blood Transfusions: No Blood Transfusion Reaction: No Anesthesia Reactions: No Chemotherapy: No Radiation Therapy: No Chicken Pox: Yes Measles: Yes Mumps: No Cancer: No Subjective Visit Visit for: follow up visit, post op #1 and knee Immunization / Flu Flu Vaccine in the Last 12 Months: No Flu Vaccine Exclusion Criteria: Already Received History of Present Illness Chief complaint: 2 WEEK POST OP RIGHT KNEE REVISION Patient is a 64-year-old female with a right total knee replacement who is s/p upsizing of the poly,., She is very happy. She reports the left shoulder is bothering her significantly. Personal History Red flag PMH: none BMI Counceling provided: Yes Pain Pain level (0-10): 0 Pain duration: ALL DAY Pain location: anterior Pain quality: sharp Pain timing: increases with activity Associated signs & symptoms: none Ambulatory data Ambulatory device: none Treatments Improvement with previous injections: No Improvement with PT: No Improvement with NSAIDS: no Review of Systems Review of Systems: All systems negative unless otherwise noted in HPI.
== END 2025-05-07 11:47 | disposition home or self-care (01) ==
LOC: HODSRG 11:00
PROVIDERS: Supervising Provider Orthopaedic Surgery Adult Reconstructive Orthopaedic Surgery; Visit Provider Orthopaedic Surgery Adult Reconstructive Orthopaedic Surgery
DX: M25.369 Other instability, unspecified knee (principal); Z96.659 Presence of unspecified artificial knee joint; M19.011 Primary osteoarthritis, right shoulder; I10 Essential (primary) hypertension; E11.9 Type 2 diabetes mellitus without complications
CPT/HCPCS: 20610; 99213; J1010; J2795; G0463

== ENCOUNTER 2025-06-04 13:29 | Outpatient (AMB) | payer MEDICARE, MEDICAID, SELFPAY ==
[2025-06-04 13:43] VITALS: BP 137/81; PULSE 90; RESP 18; TEMP 36.7; O2SAT 95; BMI 31.5
--- NOTE | 2025-06-04 13:43 | PD.ORTHCLVIS ---
Vital signs 06/04/25 13:43 Height 1.55 m Height Method Stated Weight 75.807 kg Weight Measurement Method Standing Scale BMI 31.5 BP 137/81 H Blood Pressure Source Automatic Cuff Blood Pressure Location Right Upper Arm Position Sitting Respiration 18 Pulse 90 Pulse Source Monitor Temp 98.0 F Temp Source Temporal Artery Scan Pulse Oximetry (%) 95 Oxygen Delivery Method Room Air Med/Allergies Allergies & Medications Allergies No Known Allergies Allergy (Verified 06/04/25 13:43) Medication Reconciliation omeprazole 40 mg capsule,delayed release 40 mg PO QDAY 04/05/24 [History Confirmed 06/04/25] amlodipine 5 mg tablet 5 mg PO QDAY 09/14/24 [History Confirmed 06/04/25] semaglutide 0.25 mg or 0.5 mg (2 mg/3 mL) subcutaneous pen injector (Ozempic) 0.25 mg subcut QWEEK 09/14/24 [History Confirmed 06/04/25] amitriptyline 25 mg tablet 25 mg PO HS 04/17/25 [History Confirmed 06/04/25] calcium 600 mg capsule 600 mg PO DAILY 04/17/25 [History Confirmed 06/04/25] cholecalciferol (vitamin D3) 50 mcg (2,000 unit) capsule 2,000 unit PO QDAY 04/17/25 [History Confirmed 06/04/25] empagliflozin 10 mg tablet (Jardiance) 10 mg PO QAM 04/17/25 [History Confirmed 06/04/25] losartan 50 mg tablet 50 mg PO DAILY 04/17/25 [History Confirmed 06/04/25] magnesium 500 mg tablet 15 mg PO QDAY 04/17/25 [History Confirmed 06/04/25] mecobalamin (vitamin B12) 1,000 mcg chewable tablet 1,000 mcg PO QDAY 04/17/25 [History Confirmed 06/04/25] tamoxifen 20 mg tablet 20 mg PO DAILY 04/17/25 [History Confirmed 06/04/25] tramadol 50 mg tablet 50 mg PO Q8H PRN pain 04/17/25 [History Confirmed 06/04/25] vitamin E 268 mg (400 unit) capsule 268 mg PO QDAY 04/17/25 [History Confirmed 06/04/25] acetaminophen 500 mg tablet (Acetaminophen Extra Strength) 1,000 mg (2 x 500 mg) PO Q6H PRN pain #90 tabs 04/22/25 [Rx Confirmed 06/04/25] aspirin 81 mg tablet,delayed release 81 mg PO BID #60 tabs 04/22/25 [Rx Confirmed 06/04/25] doxycycline hyclate 100 mg tablet 100 mg PO BID #14 tabs 04/22/25 [Rx Confirmed 06/04/25] gabapentin 300 mg capsule 300 mg PO .qhs #30 caps 04/22/25 [Rx Confirmed 06/04/25] sennosides 8.6 mg-docusate sodium 50 mg tablet (Senna-S) 1 tab-cap PO QDAY #30 tabs 04/22/25 [Rx Confirmed 06/04/25] oxycodone 5 mg tablet 5 mg PO Q6H PRN pain #28 tabs 05/09/25 [Rx Confirmed 06/04/25] Exam Exam Patient is in no acute distress and is cooperative with the examination today. Patient has a normal mood and affect. Breathing is nonlabored. In no respiratory distress. Bilateral extremities were evaluated and demonstrates sensation intact to light touch. Palpable pedal pulses are present. No significant edema is present. Right knee incision is clean dry and intact. Range of motion is 0 to 115 degrees. The knee feels Very loose globally. There is greater than 1 cm of medial lateral translation as well as AP instability. Right knee x-rays demonstrate a cemented total knee replacement in good alignment. The tibial component is below the fibula indicating that there was a large tibial resection. Assessment and Plan Problem List (1) Knee instability: Status: Acute Plan: Patient is a 64-year-old female status post right total knee replacement revision with upsizing of the poly she is doing well. She is doing very well plan to continue with physical therapy (2) Shoulder arthritis: Status: Acute Plan: She does have significant arthritis in the right shoulder. We discussed that she has significant glenohumeral arthritis and probably should see an arthroplasty shoulder surgeon should she continue to have pain Office Procedures GNS Level of Care Nursing/Assessment Patient Status: Established Patient Nursing Assessment/Reassesment: Medication Reconciliation, Update PMH in EMR and Vital Signs Coordination of Care: Complex Care and Chronic Disease 1-5, Education Complex Pt/Fam, Consent,records obtained, informed consent, Lab and Imaging orders, Results/Orders obtained and Staff clarify orders Special Needs: Language special needs Established Patient Charge Established Patient Point Assignment: 110 Established Patient Point Charge: EP Level 3 (80-115) MA Intake Visit Data Collection New Patient or Established: Established Patient (seen at [facility] within 3 years) Reason for Visit:: 6 WEEK POST OP RT TKA Seen by Clinical Staff ONLY (RN/MA): No Verbal consent obtained for Telemed visit?: No 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 Required: Yes PCP or OBGYN visit in last 3 months: Yes Hx Now: No Do You Feel Safe at Home: Yes Authorities Contacted: N/A Questionairres Past Medical History Past Medical History Have you ever been diagnosed with any of the following: Neurological Problems Seizures: No Cardiology Problems Congestive Heart Failure: No Hypertension: Yes Respiratory Problems Chronic Obstructive Pulmonary Disease (COPD): No Asthma: No Sleep Apnea: No Smoking: No Smoking Exposure: No Stomache/Intestinal Problems Hepatitis: No Cirrhosis: Yes Diverticulitis: Yes Diverticulosis: Yes Gastroesophageal Reflux Disease: No Genital/Urinary Problems Renal Disease: Yes Reproductive Problems Breast Cancer: Yes (right) Previous Pregnancies: Yes Musculoskeletal Problems Arthritis: Yes Head,Eye,Nose,Throat Problems Cataracts: Yes Endocrine Problems Diabetes Mellitus Type 1: No Diabetes Mellitus Type 2: Yes Blood Problems Sickle Cell Disease: No Psychologic Problems Depression: Yes Anxiety: Yes Other Problems Hospitalization: No Down Syndrome: No Developmental Delay: No Shingles: No Falls: No Blood Transfusions: No Blood Transfusion Reaction: No Anesthesia Reactions: No Chemotherapy: No Radiation Therapy: No Chicken Pox: Yes Measles: Yes Mumps: No Cancer: No Subjective Visit Visit for: post op #2 Immunization / Flu Flu Vaccine in the Last 12 Months: No Flu Vaccine Exclusion Criteria: Already Received History of Present Illness Chief complaint: 6 WEEK POST OP RT TKA Patient is a 64-year-old female with a right total knee replacement who is s/p upsizing of the poly,., She is very happy. She had an injection in her left shoulder reports that it has improved somewhat Personal History Red flag PMH: none BMI Counceling provided: Yes Pain Pain level (0-10): 2 Pain duration: COMES AND GOES Pain location: anterior Pain quality: dull and aching Pain timing: increases with activity Associated signs & symptoms: none Ambulatory data Ambulatory device: none Treatments Improvement with previous injections: No Improvement with PT: No Improvement with NSAIDS: no Review of Systems Review of Systems: All systems negative unless otherwise noted in HPI.
== END 2025-06-04 13:52 | disposition home or self-care (01) ==
LOC: HODSRG 13:29
PROVIDERS: Supervising Provider Orthopaedic Surgery Adult Reconstructive Orthopaedic Surgery; Visit Provider Orthopaedic Surgery Adult Reconstructive Orthopaedic Surgery
DX: M23.51 Chronic instability of knee, right knee (principal); Z96.651 Presence of right artificial knee joint; M19.011 Primary osteoarthritis, right shoulder; I10 Essential (primary) hypertension; E11.9 Type 2 diabetes mellitus without complications
CPT/HCPCS: 99213; G0463

== ENCOUNTER → 2025-06-27 | Outpatient (CLI) | payer MEDICARE, MEDICAID, SELFPAY ==
--- NOTE | 2025-06-27 | XR_ITS ---
Examination: Breast ultrasound, unilateral, right Date and time of exam: June 27, 2025, 1129 hours INDICATIONS: History right breast cancer July 2024 right lumpectomy 2024 Technique: Real-time salgado scale ultrasonographic imaging performed right breast including all 4 quadrants as well as nipple retroareolar and axillary region. Findings: Sonographic images right breast 9:00 intramammary lymph node 7 x 5 mm 8:00 lumpectomy scar and edema IMPRESSION: BI-RADS Category 2: Benign findings
[2025-06-27 12:34] LABS: Glucose Estimated Average 105 mg/dL (80-131); Hemoglobin A1C 5.3 % Hgb (4.8-6.0)
[2025-06-27 12:38] LABS: Anion Gap 9 (7-16); BUN/Creatinine Ratio 13 Ratio (12-20); Blood Urea Nitrogen 9 mg/dL (9-23); Calcium 8.5 mg/dL (8.3-10.6); Carbon Dioxide 25.0 mMol/L (20.0-31.0); Chloride 109 mMol/L (98-107); Creatinine (Component) 0.7 mg/dL (0.6-1.3); Glucose 164 mg/dL (74-106); Osmolality,Calculated 287 (275-295); Potassium 3.3 mMol/L (3.4-5.1); Sodium 143 mMol/L (136-145); eGFR > 60 See Note
== END | disposition home or self-care (01) ==
PROVIDERS: PCP Family Medicine; Referring Provider Nurse Practitioner Family; Visit Provider Nurse Practitioner Family
DX: C50.911 Malignant neoplasm of unspecified site of right female breast (principal); E11.65 Type 2 diabetes mellitus with hyperglycemia; I10 Essential (primary) hypertension
CPT/HCPCS: 36415; 76641; 80048; 83036

== ENCOUNTER → 2025-07-16 | Outpatient (CLI) | payer MEDICARE, MEDICAID, SELFPAY ==
--- NOTE | 2025-07-16 13:50 | XR_ITS ---
EXAMINATION: Bilateral AP knees Right knee PA and lateral axial 3 views TECHNIQUE: Bilateral AP knees single view Right knee PA lateral axial 3 views total 4 views Date and time: July 16, 2025 1414 hours INDICATIONS: Injury to the knee 2 weeks ago with pain FINDINGS: Total right knee arthroplasty. Satisfactory alignment. No fracture. Left knee medial hemiarthroplasty with satisfactory alignment Significant osteoarthritis lateral joint space left knee There is radiolucency around the prosthetic left medial hemiarthroplasty component, clinical correlation advised IMPRESSION: Total right knee arthroplasty with satisfactory alignment There is loosening around the medial prosthetic left femoral condylar component of the hemiarthroplasty, clinical correlation advised
== END | disposition home or self-care (01) ==
LOC: CDIM 13:39
PROVIDERS: PCP Family Medicine; Referring Provider Orthopaedic Surgery Adult Reconstructive Orthopaedic Surgery; Visit Provider Orthopaedic Surgery Adult Reconstructive Orthopaedic Surgery
DX: T84.032A Mechanical loosening of internal right knee prosthetic joint, initial encounter (principal); M25.561 Pain in right knee; Z96.651 Presence of right artificial knee joint
CPT/HCPCS: 73564

== ENCOUNTER 2025-07-25 10:59 | Emergency (ER) | payer OTHER, MEDICAID, SELFPAY ==
[2025-07-25 11:37] VITALS: BP 157/79; PULSE 98; RESP 18; TEMP 36.7; O2SAT 98
--- NOTE | 2025-07-25 11:47 | PD.EDDENTL ---
ED Dental RME/HPI General Chief complaint: Dental/Oral/Throat Stated complaint: LEFT JAW PAIN Time Seen by Provider: 07/25/25 11:15 Arrival date/time: 07/25/25 10:59 64-year-old female patient came in for evaluation regarding left lower molar tenderness. Patient been having pain and tenderness radiating to the left jaw for the last 2 days. I cannot see any dental cavity since patient had a crown. Patient denies any fever denies any pain on swallowing. Denies any other complaints no medications taken prior to ER visit Related Data Home Medications ?Medication ?Instructions ?Recorded ?Confirmed omeprazole 40 mg capsule,delayed 40 mg PO QDAY 04/05/24 06/04/25 release amlodipine 5 mg tablet 5 mg PO QDAY 09/14/24 06/04/25 semaglutide 0.25 mg or 0.5 mg (2 0.25 mg subcut QWEEK 09/14/24 06/04/25 mg/3 mL) subcutaneous pen injector (Ozempic) amitriptyline 25 mg tablet 25 mg PO HS 04/17/25 06/04/25 calcium 600 mg capsule 600 mg PO DAILY 04/17/25 06/04/25 cholecalciferol (vitamin D3) 50 2,000 unit PO QDAY 04/17/25 06/04/25 mcg (2,000 unit) capsule empagliflozin 10 mg tablet 10 mg PO QAM 04/17/25 06/04/25 (Jardiance) losartan 50 mg tablet 50 mg PO DAILY 04/17/25 06/04/25 magnesium 500 mg tablet 15 mg PO QDAY 04/17/25 06/04/25 mecobalamin (vitamin B12) 1,000 1,000 mcg PO QDAY 04/17/25 06/04/25 mcg chewable tablet tamoxifen 20 mg tablet 20 mg PO DAILY 04/17/25 06/04/25 tramadol 50 mg tablet 50 mg PO Q8H PRN pain 04/17/25 06/04/25 vitamin E 268 mg (400 unit) capsule 268 mg PO QDAY 04/17/25 06/04/25 Previous Rx's ?Medication ?Instructions ?Recorded acetaminophen 500 mg tablet 1,000 mg (2 x 500 mg) PO Q6H PRN 04/22/25 (Acetaminophen Extra Strength) pain #90 tabs aspirin 81 mg tablet,delayed 81 mg PO BID #60 tabs 04/22/25 release doxycycline hyclate 100 mg tablet 100 mg PO BID #14 tabs 04/22/25 gabapentin 300 mg capsule 300 mg PO .qhs #30 caps 04/22/25 sennosides 8.6 mg-docusate sodium 1 tab-cap PO QDAY #30 tabs 04/22/25 50 mg tablet (Senna-S) oxycodone 5 mg tablet 5 mg PO Q6H PRN pain #28 tabs 05/09/25 clindamycin HCl 300 mg capsule 300 mg PO TID #21 caps 07/25/25 (Cleocin HCl) ibuprofen 800 mg tablet 800 mg PO TID PRN pain #30 tabs 07/25/25 Allergies Allergy/AdvReac Type Severity Reaction Status Date / Time No Known Allergies Allergy Verified 07/25/25 11:04 Review of Systems Review of Systems Narrative Review of Systems: Review of system reviewed and within normal limits except mentioned in HPI ED Exam Narrative Physical exam: VITAL SIGNS: Reviewed. GENERAL APPEARANCE: Alert and interactive, follows commands, no acute distress, HEAD AND FACE: Non-traumatic. ENT: PERRL, pink conjunctivitis, eyelid no trauma, Mucous membrane moist. Right lower premolar with dental crown tenderness on palpation, mild swelling noted, nonfluctuant, no swelling noted on the jaw area, no redness NECK: Supple, nontender, no nuchal rigidity. CHEST: No tenderness, no crepitus, no paradoxical movement, no retractions. LUNGS: Clear, well ventilated, symmetric, no rales, no wheezing, no ronchi, no stridor, good breath sounds bilaterally. HEART: Regular rate, regular rhythm, no murmur, no gallops. ABDOMEN: Soft, positive bowel sounds, nondistended, no guarding, nontender, no rebound, no masses, RECTAL: Deferred. GENITAL: Deferred. NEUROLOGICAL: Gross motor function intact sensory function intact, Appropriate for age. MUSCULOSKELETAL: low back nontender, full range of motion. EXTREMITIES: Nontender, full range of motion. SKIN: Color pink, dry, no rash, no lacerations, no abrasions, no contusions. LYMPHATICS: Deferred. Course Quality Measures none Orders Category Date Time Status Clindamycin [Cleocin] Med 07/25/25 11:45 Once 300 mg PO X1 ONE Ketorolac Inj [Toradol Inj] Med 07/25/25 11:45 Once 30 mg IM X1 ONE Vital Signs Vital signs: Vital Signs Temperature 98.0 F 07/25/25 11:37 Pulse Rate 98 07/25/25 11:37 Respiratory Rate 18 07/25/25 11:37 Blood Pressure 157/79 H 07/25/25 11:37 Pulse Oximetry (%) 98 07/25/25 11:37 Oxygen Delivery Method Room Air 07/25/25 11:37 Dental / Oral MDM Narrative MDM Narrative:: 07/25/25 10:59 64-year-old female patient came in for evaluation regarding left lower molar tenderness. Patient been having pain and tenderness radiating to the left jaw for the last 2 days. I cannot see any dental cavity since patient had a crown. Patient denies any fever denies any pain on swallowing. Denies any other complaints no medications taken prior to ER visit Patient was given Toradol IM and clindamycin p.o. for dental infection. I&D is not needed at this time. Will be sent home on clindamycin and Motrin. Patient was advised to see a dentist in 1 to 2 days. Stable for discharge home Patient data External records reviewed:: None Clinical information provided by:: patient Social determinants that could affect healthcare access:: none Patient has the following chronic illnesses:: Hypertension diabetes mellitus How is presenting disease/condition affected by chronic disease/condition?: exacerbated by Evaluation data The following diagnostics were reviewed and interpreted by me:: other (specify) (None) Lab and/or radiology exams considered but not ordered:: None Interpretation Summary: None Medications / Prescriptions Medications or Prescriptions considered but not ordered:: None Medication administrations:: Medication Administration History Clindamycin HCl (Clindamycin 150 Mg Capsule) 300 mg PO X1 ONE Stop: 07/25/25 11:46 Ketorolac Tromethamine (Ketorolac Inj 30 Mg/Ml Vial) 30 mg IM X1 ONE Stop: 07/25/25 11:46 Toradol clindamycin Consultations Consultation(s) initiated? (list below): No Diagnosis Dental Differential Diagnosis: dental caries, toothache and dental abscess Most likely diagnosis given after review of the tests above:: Dental infection, dental abscess, infected dental caries Admission Indicated Admission indicated?: not indicated Admission Request Was there a request for admission?: No Disposition Plan Disposition Plan: Discharge Discharge Attestation Discharge Attestation: The patient was given an opportunity to ask questions and understood the discharge instructions. Discharge instructions specifically effects, indications for sooner follow up or return to the emergency department, and the expected course of current diagnosis. Patient condition: Stable Discharge Plan Plan Patient Disposition: HOME (Self Care) Discharge Disposition comment: stable Prescriptions/Referrals Prescriptions/Med Rec: New clindamycin HCl [Cleocin HCl] 300 mg capsule 300 mg PO TID Qty: 21 0RF ibuprofen 800 mg tablet 800 mg PO TID PRN (Reason: pain) Qty: 30 0RF No Action oxycodone 5 mg tablet 5 mg PO Q6H MDD 20 PRN (Reason: pain) Qty: 28 0RF Rx Instructions: z96.65 omeprazole 40 mg Capsule,Delayed Release(Dr/Ec) 40 mg PO QDAY amlodipine 5 mg tablet 5 mg PO QDAY Ozempic 0.25 mg or 0.5 mg (2 mg/3 mL) pen injector 0.25 mg SUBCUT QWEEK Patient Comments: states will not be taking anymore cholecalciferol (vitamin D3) 50 mcg (2,000 unit) capsule 2,000 unit PO QDAY mecobalamin (vitamin B12) 1,000 mcg tablet,chewable 1,000 mcg PO QDAY magnesium 500 mg tablet 15 mg PO QDAY calcium 600 mg capsule 600 mg PO DAILY vitamin E 268 mg (400 unit) capsule 268 mg PO QDAY tramadol 50 mg tablet 50 mg PO Q8H PRN (Reason: pain) Patient Comments: TOME MOR TABLETA POR V A ORAL CADA OCHO HORAS CUANDO SEA NECESARIO amitriptyline 25 mg tablet 25 mg PO HS Patient Comments: TOME 1 TABLETA POR V A ORAL TODOS LOS D AL ACOSTARSE Jardiance 10 mg tablet 10 mg PO QAM tamoxifen 20 mg tablet 20 mg PO DAILY Patient Comments: 1 TABLETA A DIARIO losartan 50 mg tablet 50 mg PO DAILY Patient Comments: TOME 1 TABLETA POR VIA ORAL TODOS LOS CH sennosides-docusate sodium [Senna-S] 8.6-50 mg tablet 1 tab-cap PO QDAY Qty: 30 0RF aspirin 81 mg tablet,delayed release (DR/EC) 81 mg PO BID Qty: 60 0RF acetaminophen [Acetaminophen Extra Strength] 500 mg tablet 1,000 mg PO Q6H MDD 1000mg PRN (Reason: pain) Qty: 90 0RF gabapentin 300 mg capsule 300 mg PO .qhs Qty: 30 0RF doxycycline hyclate 100 mg tablet 100 mg PO BID Qty: 14 0RF Problem List Clinical Impression: Dental infection Patient/Caregiver Discharge Instructions Discharge Activity: activity as tolerated Education Materials: ED Abscess Antibiotic ... Additional Instructions: Thank you for the opportunity for serving you today. You are stable for discharged . You are advised to: Follow-up with your dentist in 1 to 2 days Return to ED for worsening of symptoms Increase oral fluids Take medication as prescribed Print Language: Jamaican Stand Alone Forms: Mary Award Info., Patient Portal Info Letter PA/EARLY CHILDHOOD AIDE CLASSROOM Supervising Physician SAUMYA/ZA Supervising Physician: MD Irene
[2025-07-25] MEDS: KETOROLAC INJ 30 MG/ML VIAL IM (12:00)
[2025-07-25] MEDS: CLINDAMYCIN 150 MG CAPSULE 300 MG PO (12:00)
== END 2025-07-25 12:10 | disposition home or self-care (01) ==
LOC: SERX 12:14
PROVIDERS: Emergency Provider Emergency Medicine; PCP Nurse Practitioner Family
DX: K04.7 Periapical abscess without sinus (principal)
CPT/HCPCS: 96372; 99282; J1885; A9270

== ENCOUNTER 2025-08-08 10:30 | Outpatient (AMB) | payer MEDICARE, MEDICAID, SELFPAY ==
[2025-08-08 10:58] VITALS: BP 133/82; PULSE 102; RESP 20; TEMP 36.9; O2SAT 95; BMI 31.6
--- NOTE | 2025-08-08 10:58 | ORTHONT_ITS ---
Vital signs 08/08/25 10:58 Height 1.55 m Height Method Stated Weight 75.892 kg Weight Measurement Method Standing Scale BMI 31.6 BP 133/82 H Blood Pressure Source Automatic Cuff Blood Pressure Location Left Upper Arm Position Sitting Respiration 20 Pulse 102 H Pulse Source Monitor Temp 98.4 F Temp Source Temporal Artery Scan Pulse Oximetry (%) 95 Oxygen Delivery Method Room Air Med/Allergies Allergies & Medications Allergies No Known Allergies Allergy (Verified 08/08/25 10:59) Medication Reconciliation omeprazole 40 mg capsule,delayed release 40 mg PO QDAY 04/05/24 [History Confir med 08/08/25] amlodipine 5 mg tablet 5 mg PO QDAY 09/14/24 [History Confirmed 08/08/25] amitriptyline 25 mg tablet 25 mg PO HS 04/17/25 [History Confirmed 08/08/25] calcium 600 mg capsule 600 mg PO DAILY 04/17/25 [History Confirmed 08/08/25] cholecalciferol (vitamin D3) 50 mcg (2,000 unit) capsule 2,000 unit PO QDAY 04/17/25 [History Confirmed 08/08/25] empagliflozin 10 mg tablet (Jardiance) 10 mg PO QAM 04/17/25 [History Confirmed 08/08/25] losartan 50 mg tablet 50 mg PO DAILY 04/17/25 [History Confirmed 08/08/25] magnesium 500 mg tablet 15 mg PO QDAY 04/17/25 [History Confirmed 08/08/25] mecobalamin (vitamin B12) 1,000 mcg chewable tablet 1,000 mcg PO QDAY 04/17/25 [History Confirmed 08/08/25] tamoxifen 20 mg tablet 20 mg PO DAILY 04/17/25 [History Confirmed 08/08/25] tramadol 50 mg tablet 50 mg PO Q8H PRN pain 04/17/25 [History Confirmed 08/08/25] vitamin E 268 mg (400 unit) capsule 268 mg PO QDAY 04/17/25 [History Confirmed 08/08/25] acetaminophen 500 mg tablet (Acetaminophen Extra Strength) 1,000 mg (2 x 500 mg) PO Q6H PRN pain #90 tabs 04/22/25 [Rx Confirmed 08/08/25] doxycycline hyclate 100 mg tablet 100 mg PO BID #14 tabs 04/22/25 [Rx Confirmed 08/08/25] gabapentin 300 mg capsule 300 mg PO .qhs #30 caps 04/22/25 [Rx Confirmed 08/08/25] sennosides 8.6 mg-docusate sodium 50 mg tablet (Senna-S) 1 tab-cap PO QDAY #30 tabs 04/22/25 [Rx Confirmed 08/08/25] oxycodone 5 mg tablet 5 mg PO Q6H PRN pain #28 tabs 05/09/25 [Rx Confirmed 08/08/25] clindamycin HCl 300 mg capsule (Cleocin HCl) 300 mg PO TID #21 caps 07/25/25 [Rx Confirmed 08/08/25] ibuprofen 800 mg tablet 800 mg PO TID PRN pain #30 tabs 07/25/25 [Rx Confirmed 08/08/25] meloxicam 7.5 mg tablet 7.5 mg PO QDAY #45 tabs 08/08/25 [Rx] Exam Exam Patient is in no acute distress and is cooperative with the examination today. Patient has a normal mood and affect. Breathing is nonlabored. In no respiratory distress. Bilateral extremities were evaluated and demonstrates sensation intact to light touch. Palpable pedal pulses are present. No significant edema is present. Right knee incision is clean dry and intact. Range of motion is 0 to 115 degrees. The knee feels Very loose globally. There is greater than 1 cm of medial lateral translation as well as AP instability. Right knee x-rays demonstrate a cemented total knee replacement in good align ment. The tibial component is below the fibula indicating that there was a large tibial resection. Assessment and Plan Problem List (1) Knee instability: Status: Acute Plan: Patient is a 64-year-old female status post right total knee replacement revision with upsizing of the poly she is doing well. She is doing very well and would like more therapy. We will send her for more therapy We will see her in approximately 4 months (2) Shoulder arthritis: Status: Acute Plan: She does have significant arthritis in the right shoulder. She will likely need a shoulder surgeon Office Procedures GNS Level of Care Nursing/Assessment Patient Status: Established Patient Nursing Assessment/Reassesment: Medication Reconciliation, Update PMH in EMR and Vital Signs Coordination of Care: Complex Care and Chronic Disease 1-5, Education Complex Pt/Fam, Consent,records obtained, informed consent, Results/Orders obtained and Staff clarify orders Special Needs: Language special needs Established Patient Charge Established Patient Point Assignment: 95 Established Patient Point Charge: EP Level 3 (80-115) MA Intake Visit Data Collection New Patient or Established: Established Patient (seen at 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 PCP or OBGYN visit in last 3 months: Yes Hx Now: No Do You Feel Safe at Home: Yes Authorities Contacted: N/A Questionairres Past Medical History Past Medical History Have you ever been diagnosed with any of the following: Neurological Problems Seizures: No Cardiology Problems Congestive Heart Failure: No Hypertension: Yes Respiratory Problems Chronic Obstructive Pulmonary Disease (COPD): No Asthma: No Sleep Apnea: No Smoking: No Smoking Exposure: No Stomache/Intestinal Problems Hepatitis: No Cirrhosis: Yes Diverticulitis: Yes Diverticulosis: Yes Gastroesophageal Reflux Disease: No Genital/Urinary Problems Renal Disease: Yes Reproductive Problems Breast Cancer: Yes (right) Previous Pregnancies: Yes Musculoskeletal Problems Arthritis: Yes Head,Eye,Nose,Throat Problems Cataracts: Yes Endocrine Problems Diabetes Mellitus Type 1: No Diabetes Mellitus Type 2: Yes Blood Problems Sickle Cell Disease: No Psychologic Problems Depression: Yes Anxiety: Yes Other Problems Hospitalization: No Down Syndrome: No Developmental Delay: No Shingles: No Falls: No Blood Transfusions: No Blood Transfusion Reaction: No Anesthesia Reactions: No Chemotherapy: No Radiation Therapy: No Chicken Pox: Yes Measles: Yes Mumps: No Cancer: No Subjective Visit Visit for: follow up visit Immunization / Flu Flu Vaccine in the Last 12 Months: No Flu Vaccine Exclusion Criteria: Already Received History of Present Illness Chief complaint: 6 WEEK POST OP RT TKA Patient is a 64-year-old female with a right total knee replacement who is s/p upsizing of the poly,., She is very happy. She had an injection in her left shoulder reports that it has improved somewhat Personal History Red flag PMH: none BMI Counceling provided: Yes Pain Pain level (0-10): 2 Pain duration: COMES AND GOES Pain location: anterior Pain quality: dull and aching Pain timing: increases with activity Associated signs & symptoms: none Ambulatory data Ambulatory device: none Treatments Improvement with previous injections: No Improvement with PT: No Improvement with NSAIDS: no Review of Systems Review of Systems: All systems negative unless otherwise noted in HPI.
== END 2025-08-08 11:09 | disposition home or self-care (01) ==
LOC: HODSRG 10:30
PROVIDERS: Supervising Provider Orthopaedic Surgery Adult Reconstructive Orthopaedic Surgery; Visit Provider Orthopaedic Surgery Adult Reconstructive Orthopaedic Surgery
DX: M25.561 Pain in right knee (principal); Z47.1 Aftercare following joint replacement surgery; Z96.651 Presence of right artificial knee joint
CPT/HCPCS: 99213; G0463

== ENCOUNTER 2025-08-22 16:02 | Emergency (ER) | payer MEDICARE, MEDICAID, SELFPAY ==
[2025-08-22 16:03] VITALS: BMI 31.6
--- NOTE | 2025-08-22 16:06 | EKG_ITS ---
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
[2025-08-22 16:15] VITALS: BP 158/80; PULSE 99; RESP 20; TEMP 36.7; O2SAT 99
--- NOTE | 2025-08-22 16:18 | XR_ITS ---
EXAMINATION: PA lateral chest 2 views TECHNIQUE: Upright PA lateral chest 2 views Date and time: August 22, 2025, 1713 hours, comparison January 29, 2024 INDICATIONS: Chest pressure today with numbness in hands. FINDINGS: Right breast axillary surgical clips Normal heart size Subtle opacity in the right upper lobe No pulmonary edema IMPRESSION: Suspicious for early pneumonia in the right upper lobe
--- NOTE | 2025-08-22 16:19 | PD.EDRME ---
Rapid Medical Screening Exam RME Arrival date/time: 08/22/25 16:02 64-year-old female presents to the emergency department today for complaints of chest pain Chief Complaint: Chest Pain Vital signs: Vital Signs Temperature 98.0 F 08/22/25 16:15 Pulse Rate 99 08/22/25 16:15 Respiratory Rate 20 08/22/25 16:15 Blood Pressure 158/80 H 08/22/25 16:15 Pulse Oximetry (%) 99 08/22/25 16:15 Oxygen Delivery Method Room Air 08/22/25 16:15 Vital signs reviewed by provider: Yes Exam: On exam patient well-appearing does not appear ill or toxic Clinical Impression: Labs and imaging obtained as well as EKG
[2025-08-22 17:27] LABS: Basophils # (Auto) 0.0 Thou/mm3 (0.0-0.2); Basophils % (Auto) 0 % (0-2.5); Eosinophils # (Auto) 0.1 Thou/mm3 (0.0-0.5); Eosinophils % (Auto) 3 % (0-10); Hematocrit 36.8 % (36.0-46.0); Hemoglobin 12.8 g/dL (12.0-16.0); Immature Granulocytes Auto 0.00 Thou/mm3 (0.00-0.00); Lymphocytes # (Auto) 0.6 Thou/mm3 (1.0-4.8); Lymphocytes % (Auto) 21 % (10-50); Mean Corpuscular HGB Conc 34.8 g/dl (31.0-37.0); Mean Corpuscular Hemoglobin 30.8 pg (25.0-35.0); Mean Corpuscular Volume 89 fL (80-100); Monocytes # (Auto) 0.3 Thou/mm3 (0.0-0.8); Monocytes % (Auto) 9 % (0-12); Neutrophils # (Auto) 2.0 Thou/mm3 (1.8-7.7); Neutrophils % (Auto) 66 % (37-80); Nucleated Red Blood Cell # 0.00 Thou/mm3 (0.00-0.00); Nucleated Red Blood Cell % 0 /100 WBC (0); Platelet Count 122 Thou/mm3 (140-440); RDW Standard Deviation 43.3 fL (36.4-46.3); Red Blood Count 4.16 Miln/mm3 (4.00-5.20); White Blood Count 3.0 Thou/mm3 (3.6-11.0)
[2025-08-22 17:44] LABS: Alanine Aminotransferase 75 U/L (10-49); Albumin, Serum 4.2 gm/dL (3.4-4.8); Albumin/Globulin Ratio 1.4 (1.2-2.2); Alkaline Phosphatase 64 U/L (46-116); Anion Gap 9 (7-16); Aspartate Amino Transferase 81 U/L (0-34); BUN/Creatinine Ratio 15 Ratio (12-20); Bilirubin,Total 0.6 mg/dL (0.3-1.2); Blood Urea Nitrogen 9 mg/dL (9-23); Calcium 8.9 mg/dL (8.3-10.6); Calcium (Corrected) 8.9 mg/dL (8.5-10.1); Carbon Dioxide 25.6 mMol/L (20.0-31.0); Chloride 111 mMol/L (98-107); Creatinine (Component) 0.6 mg/dL (0.6-1.3); Estimated Creatinine Clearance 85.9 mL/min (>60); Globulin 3.1 gm/dL (2.3-3.5); Glucose 111 mg/dL (74-106); Lipase 88 U/L (12-53); Osmolality,Calculated 290 (275-295); Potassium 4.1 mMol/L (3.4-5.1); Sodium 146 mMol/L (136-145); Total Protein 7.3 gm/dL (5.7-8.2); Troponin I < 0.002 ng/mL (0.0-0.045); eGFR > 60 See Note
--- NOTE | 2025-08-22 19:48 | PD.EDURI ---
Upper Respiratory Inf. RME/HPI General Chief Complaint: Chest Pain Stated Complaint: CHEST PRESSURE X30 MINS WITH ASLEEP HANDS Time Seen by Provider: 08/22/25 17:41 Arrival date/time: 08/22/25 16:02 RME / HPI RME / HPI Narrative: 08/22/25 16:02 64-year-old female presents to the emergency department today for complaints of chest pain See [facility] for Dr. Bonilla's HPI Documentation. Exam: On exam patient well-appearing does not appear ill or toxic Impression: Labs and imaging obtained as well as EKG Related Data Home Medications ?Medication ?Instructions ?Recorded ?Confirmed omeprazole 40 mg capsule,delayed 40 mg PO QDAY 04/05/24 08/08/25 release amlodipine 5 mg tablet 5 mg PO QDAY 09/14/24 08/08/25 amitriptyline 25 mg tablet 25 mg PO HS 04/17/25 08/08/25 calcium 600 mg capsule 600 mg PO DAILY 04/17/25 08/08/25 cholecalciferol (vitamin D3) 50 2,000 unit PO QDAY 04/17/25 08/08/25 mcg (2,000 unit) capsule empagliflozin 10 mg tablet 10 mg PO QAM 04/17/25 08/08/25 (Jardiance) losartan 50 mg tablet 50 mg PO DAILY 04/17/25 08/08/25 magnesium 500 mg tablet 15 mg PO QDAY 04/17/25 08/08/25 mecobalamin (vitamin B12) 1,000 1,000 mcg PO QDAY 04/17/25 08/08/25 mcg chewable tablet tamoxifen 20 mg tablet 20 mg PO DAILY 04/17/25 08/08/25 tramadol 50 mg tablet 50 mg PO Q8H PRN pain 04/17/25 08/08/25 vitamin E 268 mg (400 unit) capsule 268 mg PO QDAY 04/17/25 08/08/25 Previous Rx's ?Medication ?Instructions ?Recorded acetaminophen 500 mg tablet 1,000 mg (2 x 500 mg) PO Q6H PRN 04/22/25 (Acetaminophen Extra Strength) pain #90 tabs doxycycline hyclate 100 mg tablet 100 mg PO BID #14 tabs 04/22/25 gabapentin 300 mg capsule 300 mg PO .qhs #30 caps 04/22/25 sennosides 8.6 mg-docusate sodium 1 tab-cap PO QDAY #30 tabs 04/22/25 50 mg tablet (Senna-S) oxycodone 5 mg tablet 5 mg PO Q6H PRN pain #28 tabs 05/09/25 clindamycin HCl 300 mg capsule 300 mg PO TID #21 caps 07/25/25 (Cleocin HCl) ibuprofen 800 mg tablet 800 mg PO TID PRN pain #30 tabs 07/25/25 meloxicam 7.5 mg tablet 7.5 mg PO QDAY #45 tabs 08/08/25 azithromycin 500 mg tablet 500 mg PO QDAY 3 days #3 tabs 08/22/25 (Zithromax TRI-ARSALAN) cefdinir 300 mg capsule 300 mg PO BID #14 caps 08/22/25 prednisone 50 mg tablet 50 mg PO QDAY #3 tabs 08/22/25 Allergies Allergy/AdvReac Type Severity Reaction Status Date / Time No Known Allergies Allergy Verified 08/22/25 16:05 Review of Systems Review of Systems Systems Reviewed: All systems reviewed, normal except as documented Past Medical History Past Medical History CARDIAC: Positive Cardiac Disorders and Hypertension GASTROINTESTINAL: Positive Gastrointestinal Disorders, Cirrhosis, Diverticulitis and Diverticulosis GENITOURINARY: Positive Genitourinary Disorders and Renal Disease REPRODUCTIVE: Positive Breast Cancer (right) and Previous Pregnancies MUSCULOSKELETAL: Positive Musculoskeletal Disorders and Arthritis ENT: Positive Cataracts ENDOCRINE: Positive Endocrine Disorders and Diabetes Mellitus Type 2 PSYCHO/SOCIAL: Positive Depression and Anxiety OTHER HISTORY: Positive Measles and Breast Cancer (right) Family History FAMILY HISTORY: Positive Family Cancer Surgical History SURGICAL: Positive Abdominal Surgery, Arthroscopy, Lumpectomy (Right) and Tubal Ligation ED Exam Narrative Physical exam: See [facility] for Dr. Boinlla's Physical Exam Documentation. Course Quality Measures none Orders Category Date Time Status EKG (ED ONLY) *Do not use* NOW Care 08/22/25 16:06 Completed EKG (ED Only) Stat Exams 08/22/25 16:06 Draft XR chest 2V Stat Exams 08/22/25 16:18 Completed CBC Stat Lab 08/22/25 16:27 Completed Comprehensive Metabolic Panel Stat Lab 08/22/25 16:27 Completed Lipase Stat Lab 08/22/25 16:27 Completed Troponin I Stat Lab 08/22/25 16:27 Completed Azithromycin Po [Zithromax PO] Med 08/22/25 19:47 Discontinued 500 mg PO X1 ONE cefTRIAXone [Rocephin] 1,000 mg Med 08/22/25 19:47 Discontinued Lidocaine 1% Pf Vial 5ml [Xylocaine 1% 5 ml] 2.1 ml IM X1 predniSONE Med 08/22/25 19:47 Discontinued 40 mg PO X1 ONE Vital Signs Vital signs: Vital Signs Temperature 98.0 F 08/22/25 16:15 Pulse Rate 99 08/22/25 16:15 Respiratory Rate 20 08/22/25 16:15 Blood Pressure 158/80 H 08/22/25 16:15 Pulse Oximetry (%) 99 08/22/25 16:15 Oxygen Delivery Method Room Air 08/22/25 16:15 Upper Respiratory Infection MDM Narrative MDM Narrative:: This section includes all my notes and documentations, including HPI, PE, and ED course. Fab Bonilla MD HPI: 64 y/o female with Hx of Hypertension, Cirrhosis, Type II DM, and Anxiety presents with about a week history of worsening cough, productive cough, purulent sputum, and dyspnea. And chest tightness for several days. No other complaints. ROS: All negative except as documented in HPI. Physical Exam: General: Alert and oriented. Hacking cough noted. Eyes: Conjunctivae and lids clear. ENT: No nasal congestion. Neck: Supple. Heart: RRR. Lungs: No respiratory distress. Good air movement with rails. Abdomen: Soft and nontender. Skin: Warm and dry. Neuro: Alert and oriented X 3. I reviewed all diagnostic test results: My interpretation of the EKG is: Sinus rhythm with nonspecific ST-T changes. My interpretation of the chest x-ray is infiltrates. Blood tests and urine tests At this point, diagnoses include: Pneumonia Treatment here included: Zithromax 500 mg orally Rocephin 1 G IM Prednisone 40 mg orally Recommended outpatient treatment. Based on my best medical judgment, made decision no further evaluation or treatment indicated at this time. Patient understands and agrees to the discharge instructions customized and printed, see below. Discharge instructions from Dr. Bonilla: --No physical exertion for 3 days to help rest the lungs. ?No smoking or exposure to smoking or pets or dust or cold or humidity. --Zithromax and cefdinir to kill the germs causing the pneumonia. --Prednisone to help decrease the swelling in the airways. --See a private doctor next week if not completely better. --Seek immediate medical care with worsening or with any concerns. Fab Bonilla MD Patient data External records reviewed:: [facility] previous records (Reviewed prior ED records from 07/25/25, Patient was seen for Dental infection.) Clinical information provided by:: patient Social determinants that could affect healthcare access:: none Patient has the following chronic illnesses:: Hypertension, Cirrhosis, Diverticulitis, Diverticulosis, Renal Disease, Breast Cancer, Arthritis, Cataracts, Diabetes Mellitus Type 2, Depression and Anxiety, Breast Cancer How is presenting disease/condition affected by chronic disease/condition?: exacerbated by Evaluation data The following diagnostics were reviewed and interpreted by me:: lab results, radiology exam(s) and EKG tracing(s) Lab and/or radiology exams considered but not ordered:: None Interpretation Summary: I reviewed all diagnostic test results: My interpretation of the EKG is: Sinus rhythm with nonspecific ST-T changes. My interpretation of the chest x-ray is infiltrates. Blood tests and urine tests Medications / Prescriptions Medications or Prescriptions considered but not ordered:: None Medication administrations:: Medication Administration History Discontinued Medications Azithromycin (Azithromycin 250 Mg Tablet) 500 mg PO X1 ONE Stop: 08/22/25 19:48 Last Admin: 08/22/25 20:04 Dose: 500 mg Documented By: SHELLI Ceftriaxone Sodium 1,000 mg/ (Lidocaine HCl 2.1 ml) 0 mg IM X1 ONE Stop: 08/22/25 19:48 Last Admin: 08/22/25 20:04 Dose: 1,000 mg Documented By: SHELLI Prednisone (Prednisone 20 Mg Tablet) 40 mg PO X1 ONE Stop: 08/22/25 19:48 Last Admin: 08/22/25 20:03 Dose: 40 mg Documented By: SHELLI Treatment here included: Zithromax 500 mg orally Rocephin 1 G IM Prednisone 40 mg orally Consultations Consultation(s) initiated? (list below): No Diagnosis Upper Respiratory Differential Diagnosis: upper respiratory infection, viral infection, bronchitis, influenza and other (Pneumonia) Most likely diagnosis given after review of the tests above:: Pneumonia Admission Indicated Admission indicated?: not indicated Explain why admission is indicated or not indicated:: With significant improvement and no condition needing emergent intervention, there was no indication for admission. Admission Request Was there a request for admission?: No Disposition Plan Disposition Plan: Discharge Discharge Attestation Discharge Attestation: The patient and all family members were given an opportunity to ask questions and understood the discharge instructions. Discharge instructions specifically effects, indications for sooner follow up or return to the emergency department, and the expected course of current diagnosis. Patient condition: Stable Discharge Plan Plan Patient Disposition: HOME (Self Care) Prescriptions/Referrals Prescriptions/Med Rec: New prednisone 50 mg tablet 50 mg PO QDAY Qty: 3 0RF cefdinir 300 mg capsule 300 mg PO BID Qty: 14 0RF azithromycin [Zithromax TRI-ARSALAN] 500 mg tablet 500 mg PO QDAY 3 Days Qty: 3 0RF No Action meloxicam 7.5 mg tablet 7.5 mg PO QDAY Qty: 45 3RF oxycodone 5 mg tablet 5 mg PO Q6H MDD 20 PRN (Reason: pain) Qty: 28 0RF Rx Instructions: z96.65 omeprazole 40 mg Capsule,Delayed Release(Dr/Ec) 40 mg PO QDAY amlodipine 5 mg tablet 5 mg PO QDAY cholecalciferol (vitamin D3) 50 mcg (2,000 unit) capsule 2,000 unit PO QDAY mecobalamin (vitamin B12) 1,000 mcg tablet,chewable 1,000 mcg PO QDAY magnesium 500 mg tablet 15 mg PO QDAY calcium 600 mg capsule 600 mg PO DAILY vitamin E 268 mg (400 unit) capsule 268 mg PO QDAY tramadol 50 mg tablet 50 mg PO Q8H PRN (Reason: pain) Patient Comments: TOME MOR TABLETA POR V A ORAL CADA OCHO HORAS CUANDO SEA NECESARIO amitriptyline 25 mg tablet 25 mg PO HS Patient Comments: TOME 1 TABLETA POR V A ORAL TODOS LOS D AL ACOSTARSE Jardiance 10 mg tablet 10 mg PO QAM tamoxifen 20 mg tablet 20 mg PO DAILY Patient Comments: 1 TABLETA A DIARIO losartan 50 mg tablet 50 mg PO DAILY Patient Comments: TOME 1 TABLETA POR VIA ORAL TODOS LOS CH sennosides-docusate sodium [Senna-S] 8.6-50 mg tablet 1 tab-cap PO QDAY Qty: 30 0RF acetaminophen [Acetaminophen Extra Strength] 500 mg tablet 1,000 mg PO Q6H MDD 1000mg PRN (Reason: pain) Qty: 90 0RF gabapentin 300 mg capsule 300 mg PO .qhs Qty: 30 0RF doxycycline hyclate 100 mg tablet 100 mg PO BID Qty: 14 0RF clindamycin HCl [Cleocin HCl] 300 mg capsule 300 mg PO TID Qty: 21 0RF ibuprofen 800 mg tablet 800 mg PO TID PRN (Reason: pain) Qty: 30 0RF Referrals: Pamela Domínguez EYE SPECIALIST [Primary Care Provider] - In 1 week Problem List Clinical Impression: Pneumonia Patient/Caregiver Discharge Instructions Discharge Activity: activity as tolerated Education Materials: ED Pneumonia (Adult) Additional Instructions: Discharge instructions from Dr. Bonilla: --No physical exertion for 3 days to help rest the lungs. ?No smoking or exposure to smoking or pets or dust or cold or humidity. --Zithromax and cefdinir to kill the germs causing the pneumonia. --Prednisone to help decrease the swelling in the airways. --See a private doctor next week if not completely better. --Seek immediate medical care with worsening or with any concerns. Instrucciones de mojgan del Dr. Bonilla: --Evite el esfuerzo f?sico clark 3 d?as para facilitar la recuperaci?n de los pulmones. --Evite fumar, la exposici?n al humo del tabaco, las mascotas, el polvo, el fr?o y la humedad. --Ross Zithromax y cefdinir para eliminar los g?rmenes que causan la neumon?a. --Ross prednisona para ayudar a reducir la inflamaci?n de las v?as respiratorias. --Consulte con un m?dico particular la pr?xima semana si no se siente completamente recuperado. --Busque atenci?n m?dica inmediata si diogo s?ntomas empeoran o si tiene alguna inquietud. Print Language: [place] Stand Alone Forms: Mary Award Info., Patient Portal Info Letter
[2025-08-22] MEDS: AZITHROMYCIN 250 MG TABLET 500 MG PO (20:04)
== END 2025-08-22 20:19 | disposition home or self-care (01) ==
PROVIDERS: Nurse Practitioner Primary Care; Emergency Provider Emergency Medicine; PCP Nurse Practitioner Family
DX: J18.9 Pneumonia, unspecified organism (principal); R94.31 Abnormal electrocardiogram [ECG] [EKG]; I10 Essential (primary) hypertension
CPT/HCPCS: 36415; 71046; 80053; 83690; 84484; 85025; 93005; 96372; 99283; J0696; J3490; J7512; A9270

== ENCOUNTER → 2025-08-27 | Outpatient (CLI) | payer MEDICARE, MEDICAID, SELFPAY ==
[2025-08-27 11:17] LABS: Basophils # (Auto) 0.0 Thou/mm3 (0.0-0.2); Basophils % (Auto) 0 % (0-2.5); Eosinophils # (Auto) 0.2 Thou/mm3 (0.0-0.5); Eosinophils % (Auto) 4 % (0-10); Hematocrit 40.1 % (36.0-46.0); Hemoglobin 13.9 g/dL (12.0-16.0); Immature Granulocytes Auto 0.02 Thou/mm3 (0.00-0.00); Lymphocytes # (Auto) 1.5 Thou/mm3 (1.0-4.8); Lymphocytes % (Auto) 33 % (10-50); Mean Corpuscular HGB Conc 34.7 g/dl (31.0-37.0); Mean Corpuscular Hemoglobin 31.0 pg (25.0-35.0); Mean Corpuscular Volume 89 fL (80-100); Monocytes # (Auto) 0.4 Thou/mm3 (0.0-0.8); Monocytes % (Auto) 8 % (0-12); Neutrophils # (Auto) 2.5 Thou/mm3 (1.8-7.7); Neutrophils % (Auto) 55 % (37-80); Nucleated Red Blood Cell # 0.00 Thou/mm3 (0.00-0.00); Nucleated Red Blood Cell % 0 /100 WBC (0); Platelet Count 132 Thou/mm3 (140-440); RDW Standard Deviation 44.4 fL (36.4-46.3); Red Blood Count 4.49 Miln/mm3 (4.00-5.20); White Blood Count 4.6 Thou/mm3 (3.6-11.0)
[2025-08-27 11:58] LABS: Sed Rate (ESR) 7 mm/hr (0-30)
[2025-08-27 12:10] LABS: Alanine Aminotransferase 77 U/L (10-49); Albumin, Serum 4.3 gm/dL (3.4-4.8); Alkaline Phosphatase 62 U/L (46-116); Anion Gap 11 (7-16); Aspartate Amino Transferase 67 U/L (0-34); BUN/Creatinine Ratio 18 Ratio (12-20); Bilirubin,Total 0.9 mg/dL (0.3-1.2); Blood Urea Nitrogen 11 mg/dL (9-23); C-Reactive Protein < 0.5 mg/dL (0.0-0.9); Calcium 8.8 mg/dL (8.3-10.6); Calcium (Corrected) 8.8 mg/dL (8.5-10.1); Carbon Dioxide 26.8 mMol/L (20.0-31.0); Chloride 108 mMol/L (98-107); Creatinine (Component) 0.6 mg/dL (0.6-1.3); Glucose 89 mg/dL (74-106); Osmolality,Calculated 288 (275-295); Potassium 4.2 mMol/L (3.4-5.1); Sodium 146 mMol/L (136-145); eGFR > 60 See Note
[2025-08-27 12:59] LABS: Albumin/Globulin Ratio 1.4 (1.2-2.2); Globulin 3.0 gm/dL (2.3-3.5); Total Protein 7.3 gm/dL (5.7-8.2)
== END | disposition home or self-care (01) ==
PROVIDERS: PCP Nurse Practitioner Family; Referring Provider Physician Assistant Medical; Visit Provider Physician Assistant Medical
DX: E11.22 Type 2 diabetes mellitus with diabetic chronic kidney disease (principal); I12.9 Hypertensive chronic kidney disease with stage 1 through stage 4 chronic kidney disease, or unspecified chronic kidney disease; N18.9 Chronic kidney disease, unspecified; E11.65 Type 2 diabetes mellitus with hyperglycemia; F11.90 Opioid use, unspecified, uncomplicated; F34.1 Dysthymic disorder; G25.81 Restless legs syndrome; K74.69 Other cirrhosis of liver; M17.0 Bilateral primary osteoarthritis of knee; M25.511 Pain in right shoulder; M25.521 Pain in right elbow; M47.816 Spondylosis without myelopathy or radiculopathy, lumbar region; M79.7 Fibromyalgia; R76.0 Raised antibody titer
CPT/HCPCS: 36415; 80053; 85025; 85652; 86140

== ENCOUNTER → 2025-09-17 | Outpatient (CLI) | payer MEDICARE, MEDICAID, SELFPAY ==
--- NOTE | 2025-09-17 | XR_ITS ---
EXAMINATION: PA lateral chest 2 views TECHNIQUE: Upright PA lateral chest 2 views Date and time: September 17, 2025, 1211 hours INDICATIONS: Follow-up pneumonia in the right lung on August 22, 2025 FINDINGS: Minimal probable scarring in the right midlung on the current study Right axillary surgical clips Normal heart size No interval pneumonia or pulmonary edema IMPRESSION: No interval pneumonia or pulmonary edema
[2025-09-17 13:15] LABS: Basophils # (Auto) 0.0 Thou/mm3 (0.0-0.2); Basophils % (Auto) 0 % (0-2.5); Eosinophils # (Auto) 0.1 Thou/mm3 (0.0-0.5); Eosinophils % (Auto) 3 % (0-10); Hematocrit 37.4 % (36.0-46.0); Hemoglobin 13.3 g/dL (12.0-16.0); Immature Granulocytes Auto 0.01 Thou/mm3 (0.00-0.00); Lymphocytes # (Auto) 0.8 Thou/mm3 (1.0-4.8); Lymphocytes % (Auto) 22 % (10-50); Mean Corpuscular HGB Conc 35.6 g/dl (31.0-37.0); Mean Corpuscular Hemoglobin 31.1 pg (25.0-35.0); Mean Corpuscular Volume 87 fL (80-100); Monocytes # (Auto) 0.3 Thou/mm3 (0.0-0.8); Monocytes % (Auto) 7 % (0-12); Neutrophils # (Auto) 2.5 Thou/mm3 (1.8-7.7); Neutrophils % (Auto) 67 % (37-80); Nucleated Red Blood Cell # 0.00 Thou/mm3 (0.00-0.00); Nucleated Red Blood Cell % 0 /100 WBC (0); Platelet Count 139 Thou/mm3 (140-440); RDW Standard Deviation 43.4 fL (36.4-46.3); Red Blood Count 4.28 Miln/mm3 (4.00-5.20); White Blood Count 3.7 Thou/mm3 (3.6-11.0)
[2025-09-17 13:28] LABS: Alanine Aminotransferase 66 U/L (10-49); Albumin, Serum 4.2 gm/dL (3.4-4.8); Albumin/Globulin Ratio 1.3 (1.2-2.2); Alkaline Phosphatase 64 U/L (46-116); Anion Gap 14 (7-16); Aspartate Amino Transferase 76 U/L (0-34); BUN/Creatinine Ratio 17 Ratio (12-20); Bilirubin,Total 0.8 mg/dL (0.3-1.2); Blood Urea Nitrogen 10 mg/dL (9-23); Calcium 8.9 mg/dL (8.3-10.6); Calcium (Corrected) 8.9 mg/dL (8.5-10.1); Carbon Dioxide 20.3 mMol/L (20.0-31.0); Chloride 108 mMol/L (98-107); Creatinine (Component) 0.6 mg/dL (0.6-1.3); Globulin 3.3 gm/dL (2.3-3.5); Glucose 98 mg/dL (74-106); Osmolality,Calculated 282 (275-295); Potassium 3.5 mMol/L (3.4-5.1); Sodium 142 mMol/L (136-145); Total Protein 7.5 gm/dL (5.7-8.2); eGFR > 60 See Note
[2025-09-17 13:29] LABS: Amphetamine/Methamp Scrn,U Negative (Negative); Barbiturate Screen,Urine Negative (Negative); Benzodiazepines Screen,Urine Negative (Negative); Benzoylecgonine Screen, Ur Negative (Negative); Fentanyl Screen,Urine Negative (Negative); Opiate Screen,Urine Negative (Negative); THC Screen,Urine Negative (Negative)
== END | disposition home or self-care (01) ==
LOC: CDIM 11:45 → COPL 12:15
PROVIDERS: Referring Provider Physician Assistant Medical; Visit Provider Nurse Practitioner Family
DX: J15.9 Unspecified bacterial pneumonia (principal); F11.90 Opioid use, unspecified, uncomplicated; G25.81 Restless legs syndrome; K74.69 Other cirrhosis of liver; M17.0 Bilateral primary osteoarthritis of knee; M25.511 Pain in right shoulder; M79.7 Fibromyalgia; R76.0 Raised antibody titer
CPT/HCPCS: 36415; 71046; 80053; 80307; 85025

== ENCOUNTER 2025-09-22 08:30 | Emergency (ER) | payer MEDICARE, MEDICAID, SELFPAY ==
[2025-09-22 08:48] VITALS: BP 168/91; PULSE 104; RESP 17; TEMP 36.9; O2SAT 95; BMI 32.1
--- NOTE | 2025-09-22 09:25 | PD.EDFEVER ---
ED Fever RME/HPI General Chief Complaint: Fever Stated Complaint: fever x6 days, right shoulder pain Time Seen by Provider: 09/22/25 08:42 Arrival date/time: 09/22/25 08:30 This is a 65-year-old female that comes into the emergency room with complaints of chronic right shoulder pain. Cough, congestion and fever. Patient states that she was recently treated for pneumonia by her primary doctor with 2 different antibiotics. Patient states that she still had a fever on and off cough and congestion. Patient also complains of chronic right shoulder pain. Patient states that she is post have some kind of surgery for it. Patient has a history of a mass in her breast that was removed. Patient also has a history of high blood pressure. Patient denies chest pain or shortness of breath Related Data Home Medications ?Medication ?Instructions ?Recorded ?Confirmed omeprazole 40 mg capsule,delayed 40 mg PO QDAY 04/05/24 08/08/25 release amlodipine 5 mg tablet 5 mg PO QDAY 09/14/24 08/08/25 amitriptyline 25 mg tablet 25 mg PO HS 04/17/25 08/08/25 calcium 600 mg capsule 600 mg PO DAILY 04/17/25 08/08/25 cholecalciferol (vitamin D3) 50 2,000 unit PO QDAY 04/17/25 08/08/25 mcg (2,000 unit) capsule empagliflozin 10 mg tablet 10 mg PO QAM 04/17/25 08/08/25 (Jardiance) losartan 50 mg tablet 50 mg PO DAILY 04/17/25 08/08/25 magnesium 500 mg tablet 15 mg PO QDAY 04/17/25 08/08/25 mecobalamin (vitamin B12) 1,000 1,000 mcg PO QDAY 04/17/25 08/08/25 mcg chewable tablet tamoxifen 20 mg tablet 20 mg PO DAILY 04/17/25 08/08/25 tramadol 50 mg tablet 50 mg PO Q8H PRN pain 04/17/25 08/08/25 vitamin E 268 mg (400 unit) capsule 268 mg PO QDAY 04/17/25 08/08/25 Previous Rx's ?Medication ?Instructions ?Recorded acetaminophen 500 mg tablet 1,000 mg (2 x 500 mg) PO Q6H PRN 04/22/25 (Acetaminophen Extra Strength) pain #90 tabs doxycycline hyclate 100 mg tablet 100 mg PO BID #14 tabs 04/22/25 gabapentin 300 mg capsule 300 mg PO .qhs #30 caps 04/22/25 sennosides 8.6 mg-docusate sodium 1 tab-cap PO QDAY #30 tabs 04/22/25 50 mg tablet (Senna-S) oxycodone 5 mg tablet 5 mg PO Q6H PRN pain #28 tabs 05/09/25 clindamycin HCl 300 mg capsule 300 mg PO TID #21 caps 07/25/25 (Cleocin HCl) ibuprofen 800 mg tablet 800 mg PO TID PRN pain #30 tabs 07/25/25 meloxicam 7.5 mg tablet 7.5 mg PO QDAY #45 tabs 08/08/25 cefdinir 300 mg capsule 300 mg PO BID #14 caps 08/22/25 prednisone 50 mg tablet 50 mg PO QDAY #3 tabs 08/22/25 ibuprofen 800 mg tablet 800 mg PO Q6H PRN pain #10 tabs 09/22/25 Allergies Allergy/AdvReac Type Severity Reaction Status Date / Time No Known Allergies Allergy Verified 09/22/25 08:36 Review of Systems Review of Systems Systems Reviewed: All systems reviewed, normal except as documented Past Medical History Past Medical History CARDIAC: Positive Cardiac Disorders and Hypertension GASTROINTESTINAL: Positive Gastrointestinal Disorders, Cirrhosis, Diverticulitis and Diverticulosis GENITOURINARY: Positive Genitourinary Disorders and Renal Disease REPRODUCTIVE: Positive Breast Cancer (right) and Previous Pregnancies MUSCULOSKELETAL: Positive Musculoskeletal Disorders and Arthritis ENT: Positive Cataracts ENDOCRINE: Positive Endocrine Disorders and Diabetes Mellitus Type 2 PSYCHO/SOCIAL: Positive Depression and Anxiety OTHER HISTORY: Positive Measles and Breast Cancer (right) Family History FAMILY HISTORY: Positive Family Cancer Surgical History SURGICAL: Positive Abdominal Surgery, Arthroscopy, Lumpectomy (Right) and Tubal Ligation Physical Exam Narrative Physical exam: VITAL SIGNS: Reviewed. GENERAL APPEARANCE: Alert and interactive, follows commands, no acute distress, HEAD AND FACE: Non-traumatic. ENT: PERRL, conjuctiva pink and clear, eyelid no trauma, Mucous membrane moist. NECK: Supple, nontender, no nuchal rigidity. CHEST: No tenderness, no crepitus, no paradoxical movement, no retractions. LUNGS: Clear, well ventilated, symmetric, no rales, no wheezing, no rhonchi, no stridor, good breath sounds bilaterally. HEART: Regular rate, regular rhythm, no murmur, no gallops. ABDOMEN: Soft, nondistended, nontender to palpation NEUROLOGICAL: Gross motor function intact sensory function intact, Appropriate for age. MUSCULOSKELETAL: low back nontender, full range of motion. Pain with range of motion of the right shoulder forward to the side and back very little range of motion EXTREMITIES: No redness no swelling no skin breakdown on bilateral foot and leg. Distal neurovascular status intact bilateral foot SKIN: Color pink, dry Course Quality Measures none Orders Category Date Time Status Bedside COVID-19 Antigen Test NOW Care 09/22/25 09:25 Completed Bedside Influenza A&B Antigen Test NOW Care 09/22/25 09:25 Completed XR chest 1V Stat Exams 09/22/25 09:28 Completed HCG Qualitative,Urine Stat Lab 09/22/25 09:44 Completed Urinalysis, C/S if Indicated Stat Lab 09/22/25 09:44 Completed Urine Culture Stat Lab 09/22/25 09:44 Completed Acetaminophen Tab [Tylenol ES Tab] Med 09/22/25 09:27 Discontinued 1,000 mg PO X1 ONE Ibuprofen Tab [Motrin Tab] Med 09/22/25 09:27 Discontinued 800 mg PO X1 ONE Vital Signs Vital signs: Vital Signs Temperature 98.5 F 09/22/25 08:48 Pulse Rate 104 H 09/22/25 08:48 Respiratory Rate 17 09/22/25 08:48 Blood Pressure 168/91 H 09/22/25 08:48 Pulse Oximetry (%) 95 09/22/25 08:48 Oxygen Delivery Method Room Air 09/22/25 08:48 Fever MDM Narrative MDM Narrative:: chest x ray: FINDINGS: Normal heart size Mild pneumonia versus scarring in the right midlung Right axillary surgical clips Moderate osteopenia No shoulder fractures IMPRESSION: 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 Patient has already been treated by her primary doctor twice with antibiotics. This shoulder pain seems to be chronic. I told her to follow-up with her primary doctor about this. Patient had no new trauma to her shoulder. Patient was told that she may need surgery to her shoulder. Told patient to follow-up with her primary doctor about. Explained to patient that this likely is a viral illness or lingering symptoms for pneumonia. I do not feel that patient needs any more antibiotics at this time. Patient told to rest take Tyle and ibuprofen for pain and she can follow-up with her primary doctor next week. Patient verbalized understanding. Sudarshanon dictation: Although this document has been carefully reviewed, there may still be some phonetic and other typographical errors. These errors are purely grammatical due to imperfections in the software program and should not be construed in any way to compromise the substance of the patient's medical care during this visit. Patient data External records reviewed:: [facility] previous records Clinical information provided by:: patient Social determinants that could affect healthcare access:: none Patient has the following chronic illnesses:: See note How is presenting disease/condition affected by chronic disease/condition?: no chronic disease Evaluation data The following diagnostics were reviewed and interpreted by me:: lab results and radiology exam(s) Lab and/or radiology exams considered but not ordered:: See note Interpretation Summary: See note Medications / Prescriptions Medications or Prescriptions considered but not ordered:: None Medication administrations:: Medication Administration History Discontinued Medications Acetaminophen (Acetaminophen 500 Mg Tablet) 1,000 mg PO X1 ONE Stop: 09/22/25 09:28 Last Admin: 09/22/25 10:14 Dose: 1,000 mg Documented By: Ibuprofen (Ibuprofen Tab 400 Mg Tablet) 800 mg PO X1 ONE Stop: 09/22/25 09:28 Last Admin: 09/22/25 10:14 Dose: 800 mg Documented By: See MAR Consultations Consultation(s) initiated? (list below): No Diagnosis Fever Differential Diagnosis: fever of unknown origin, viral infection and other (Shoulder pain, contusion) Most likely diagnosis given after review of the tests above:: See note Admission Indicated Admission indicated?: not indicated Admission Request Was there a request for admission?: No Disposition Plan Disposition Plan: Discharge Discharge Attestation Discharge Attestation: The patient and all family members were given an opportunity to ask questions and understood the discharge instructions. Discharge instructions specifically effects, indications for sooner follow up or return to the emergency department, and the expected course of current diagnosis. Patient condition: Stable Discharge Plan Plan Patient Disposition: HOME (Self Care) Patient condition on transfer: Stable Prescriptions/Referrals Prescriptions/Med Rec: New ibuprofen 800 mg tablet 800 mg PO Q6H PRN (Reason: pain) Qty: 10 0RF No Action meloxicam 7.5 mg tablet 7.5 mg PO QDAY Qty: 45 3RF oxycodone 5 mg tablet 5 mg PO Q6H MDD 20 PRN (Reason: pain) Qty: 28 0RF Rx Instructions: z96.65 omeprazole 40 mg Capsule,Delayed Release(Dr/Ec) 40 mg PO QDAY amlodipine 5 mg tablet 5 mg PO QDAY cholecalciferol (vitamin D3) 50 mcg (2,000 unit) capsule 2,000 unit PO QDAY mecobalamin (vitamin B12) 1,000 mcg tablet,chewable 1,000 mcg PO QDAY magnesium 500 mg tablet 15 mg PO QDAY calcium 600 mg capsule 600 mg PO DAILY vitamin E 268 mg (400 unit) capsule 268 mg PO QDAY tramadol 50 mg tablet 50 mg PO Q8H PRN (Reason: pain) Patient Comments: TOME MOR TABLETA POR V A ORAL CADA [facility] H[place]AS CU[place]O SEA NECESARIO amitriptyline 25 mg tablet 25 mg PO HS Patient Comments: TOME 1 TABLETA POR V A ORAL TODOS LOS D AL ACOSTARSE Jardiance 10 mg tablet 10 mg PO QAM tamoxifen 20 mg tablet 20 mg PO DAILY Patient Comments: 1 TABLETA A DIARIO losartan 50 mg tablet 50 mg PO DAILY Patient Comments: TOME 1 TABLETA POR VIA ORAL TODOS LOS CH sennosides-docusate sodium [Senna-S] 8.6-50 mg tablet 1 tab-cap PO QDAY Qty: 30 0RF acetaminophen [Acetaminophen Extra Strength] 500 mg tablet 1,000 mg PO Q6H MDD 1000mg PRN (Reason: pain) Qty: 90 0RF gabapentin 300 mg capsule 300 mg PO .qhs Qty: 30 0RF doxycycline hyclate 100 mg tablet 100 mg PO BID Qty: 14 0RF clindamycin HCl [Cleocin HCl] 300 mg capsule 300 mg PO TID Qty: 21 0RF ibuprofen 800 mg tablet 800 mg PO TID PRN (Reason: pain) Qty: 30 0RF prednisone 50 mg tablet 50 mg PO QDAY Qty: 3 0RF cefdinir 300 mg capsule 300 mg PO BID Qty: 14 0RF Referrals: Pamela Domínguez [employer] [Primary Care Provider] - In 1 week Problem List Clinical Impression: Chronic pain in right shoulder, URI (upper respiratory infection) Patient/Caregiver Discharge Instructions Discharge Activity: activity as tolerated Education Materials: ED Pain Management: Chronic Additional Instructions: Agustina un bunny con montoya medico de cabecera en las proximas 24-48 horas. Regrese a la liu de emergencias si hay evidencia de que los signos o sintomas empeoran. Print Language: Italian Stand Alone Forms: Mary Award Info., Patient Portal Info Letter PA/HEATING AND VENTILATING TENDER Supervising Physician PA/HEATING AND VENTILATING TENDER Supervising Physician: barbara
--- NOTE | 2025-09-22 09:28 | XR_ITS ---
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
[2025-09-22 10:11] LABS: Collection Type, Urine Voided
[2025-09-22] MEDS: ACETAMINOPHEN 500 MG TABLET 1000 MG PO (10:14)
[2025-09-22] MEDS: IBUPROFEN TAB 400 MG TABLET 800 MG PO (10:14)
[2025-09-22 10:28] LABS: Bacteria,Urine 3+; Bilirubin,Urine Negative (Negative); Blood,Urine Negative (Negative); Color,Urine Lt-Yellow (Lt Yel-Yel); Glucose, Urine 4+ (Negative); Ketones,Urine 1+ (Negative); Leukocyte Esterase,Urine Negative (Negative); Nitrite,Urine Negative (Negative); PH,Urine 6.5 (5.0-7.0); Protein,Urine Trace (Neg - Trace); RBC,Urine 3 /hpf (0-3); Specific Gravity,Urine 1.037 (1.001-1.035); Squamous Epithelial Cell,Urine 2 /hpf (0-5); Urobilinogen,Urine Negative mg/dL (0.0-1.0); WBC,Urine 3 /hpf (0-5)
[2025-09-22 10:33] LABS: Clarity,Urine Hazy (Clear/Hazy); Culture Indicated,Urine Yes
[2025-09-22 10:34] LABS: HCG Qualitative,Urine Negative
== END 2025-09-22 14:51 | disposition home or self-care (01) ==
PROVIDERS: Nurse Practitioner Family; Emergency Provider Emergency Medicine; PCP Nurse Practitioner Family
DX: J06.9 Acute upper respiratory infection, unspecified (principal); M25.511 Pain in right shoulder; G89.29 Other chronic pain
CPT/HCPCS: 71045; 81001; 81025; 87086; 87502; 87635; 99283; A9270